=== PATIENT | female | born 1930 | race Caucasian/White ===

== ENCOUNTER 2017-01-22 20:09 | Inpatient (IN) | payer MEDICARE ==
[~2017-01-22] VITALS: Ht 165.1 cm; Wt 61.7 kg
[2017-01-22 21:29] LABS: BASO # 0.1 x10^3/uL (0.0-0.2); BASO % 3 % (0-3); EOS # 0.1 x10^3/uL (0.0-0.7); EOS % 2 % (0-3); HEMATOCRIT 27.9 % (36.0-47.0); HEMOGLOBIN 9.5 g/dL (12.0-15.5); LYMPH # 1.5 x10^3/uL (1.0-4.8); LYMPH % 40 % (24-48); MEAN CORPUSCULAR HEMOGLOBIN 31 pg (25-35); MEAN CORPUSCULAR HGB CONC 34 g/dL (31-37); MEAN CORPUSCULAR VOLUME 92 fL (79-100); MONO # 0.4 x10^3/uL (0.0-1.1); MONO % 10 % (0-9); NEUT # 1.8 x10^3uL (1.8-7.7); NEUT % 46 % (31-73); PLATELET COUNT 156 x10^3/uL (140-400); RED BLOOD COUNT 3.04 x10^6/uL (3.50-5.40); WHITE BLOOD COUNT 3.8 x10^3/uL (4.0-11.0)
[2017-01-22] MEDS ORDERED: SERT50TA PO (21:29)
[2017-01-22] MEDS ORDERED: CALC1TAB70 PO (21:29)
[2017-01-22] MEDS ORDERED: FLUT16SP21 NS (21:29)
[2017-01-22] MEDS ORDERED: CHOL10003 PO (21:29)
[2017-01-22] MEDS ORDERED: ACET325T9 PO (21:29)
[2017-01-22] MEDS ORDERED: FERR-26 PO (21:29)
[2017-01-22] MEDS ORDERED: DONE10TA61 PO (21:29)
[2017-01-22] MEDS ORDERED: MIRT15TA3 PO (21:29)
[2017-01-22] MEDS ORDERED: QUET25TA5 PO (21:29)
[2017-01-22] MEDS ORDERED: MIRA25TA PO (21:29)
[2017-01-22] MEDS ORDERED: ASPI81TA50 PO (21:29)
[2017-01-22] MEDS ORDERED: LORA0.5T PO (21:29)
[2017-01-22] MEDS ORDERED: ACYC400T PO (21:29)
[2017-01-22] MEDS ORDERED: AMLO10TA2 PO (21:29)
[2017-01-22] MEDS ORDERED: LORA10TA3 PO (21:29)
[2017-01-22] MEDS ORDERED: WARF3TAB7 PO (21:29)
[2017-01-22] MEDS ORDERED: ACET500T68 PO (21:29)
[2017-01-22] MEDS ORDERED: DICL100G18 TP (21:29)
[2017-01-22] MEDS ORDERED: TRAM50TA PO (21:29)
[2017-01-22] MEDS ORDERED: ALPR0.254 PO (21:29)
[2017-01-22 21:42] LABS: ALBUMIN 3.7 g/dL (3.4-5.0); ALBUMIN/GLOBULIN RATIO 1.3 (1.0-1.7); CALCIUM 9.4 mg/dL (8.5-10.1); CREATININE 1.3 mg/dL (0.6-1.0); GFR 38.8; MAGNESIUM 1.8 mg/dL (1.8-2.4); POTASSIUM 3.7 mmol/L (3.5-5.1); TOTAL BILIRUBIN 0.3 mg/dL (0.2-1.0); TOTAL PROTEIN 6.6 g/dL (6.4-8.2)
[2017-01-22 21:44] LABS: ACETAMIN < 2.0 mcg/mL (10-30); ETHANOL < 10 mg/dL (0-10); SALIC 0.7 mg/dL (2.8-20.0)
--- NOTE | 2017-01-22 21:49 | RAD ---
CT Head W/O Contrast: History: ALTERED MENTAL STATUS, PSYCH EVAL Comparison: none Axial images were obtained without contrast. There is marked diffuse atrophy. There is no mass effect, extraaxial fluid collections or gross bleed. 11 mm density along the tentorium on the left could be a meningioma or calcification. There is ventriculomegaly. Mild, patchy periventricular and subcortical white matter hypoattenuation is seen. There is no focal loss of thompson-white matter distinction to suggest acute ischemia, i.e. stroke. Impression: 1. Marked cerebral atrophy. 2. Ventriculomegaly is felt to be secondary to atrophy. 3. No acute findings. PQRS Compliance Statement: One or more of the following individualized dose reduction techniques were utilized for this examination: 1. Automated exposure control 2. Adjustment of the mA and/or kV according to patient size 3. Use of iterative reconstruction technique Electronically signed by: Hemal Parker III, MD (01/22/2017 9:45 PM) [facility]
--- NOTE | 2017-01-22 22:14 | EKG ---
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
--- NOTE | 2017-01-22 22:46 | PHYS DOC ---
Past History Past Medical History: A-Fib, CAD, Dementia, Depression, Hypertension, UTI, Other Past Surgical History: Other Alcohol Use: None Drug Use: None Adult General Chief Complaint Chief Complaint: PSYCH EVALUATION [facility] HPI Patient is a 86-year-old female brought in as a geriatric psych screening. Patient reportedly is depressed and threatening to kill herself and running around the alf naked and putting things in her vagina. Patient is pleasant and denies any complaints to me. She is in no obvious distress with normal vital signs. Review of Systems Review of Systems Constitutional: Denies fever or chills [] Eyes: Denies change in visual acuity, redness, or eye pain [] HENT: Denies nasal congestion or sore throat [] Respiratory: Denies cough or shortness of breath [] Cardiovascular: No additional information not addressed in HPI [] GI: Denies abdominal pain, nausea, vomiting, bloody stools or diarrhea [] : Denies dysuria or hematuria [] Musculoskeletal: Denies back pain or joint pain [] Integument: Denies rash or skin lesions [] Neurologic: Denies headache, focal weakness or sensory changes [] Endocrine: Denies polyuria or polydipsia [] All other systems were reviewed and found to be within normal limits, except as documented in this note. Allergies Allergies Allergies Coded Allergies Type Severity Reaction Last Updated Verified No Known Drug Allergies 01/22/17 No Physical Exam Physical Exam Constitutional: Well developed, well nourished, no acute distress, non-toxic appearance. [] HENT: Normocephalic, atraumatic, bilateral external ears normal, oropharynx moist, no oral exudates, nose normal. [] Eyes: PERRLA, EOMI, conjunctiva normal, no discharge. [] Neck: Normal range of motion, no tenderness, supple, no stridor. [] Cardiovascular:Heart rate regular rhythm, no murmur [] Lungs & Thorax: Bilateral breath sounds clear to auscultation [] Abdomen: Bowel sounds normal, soft, no tenderness, no masses, no pulsatile masses. [] Skin: Warm, dry, no erythema, no rash. [] Back: No tenderness, no CVA tenderness. [] Extremities: No tenderness, no cyanosis, no clubbing, ROM intact, no edema. [] Neurologic: Alert and oriented X 2, moves all ext Current Patient Data Vital Signs Vital Signs Date Time Temp Pulse Resp B/P (MAP) Pulse Ox O2 Delivery O2 Flow Rate FiO2 01/22/17 20:10 98.1 65 20 99 Room Air Lab Results Laboratory Tests Test 01/22/17 21:04 White Blood Count 3.8 x10^3/uL (4.0-11.0) L Red Blood Count 3.04 x10^6/uL (3.50-5.40) L Hemoglobin 9.5 g/dL (12.0-15.5) L Hematocrit 27.9 % (36.0-47.0) L Mean Corpuscular Volume 92 fL (79-100) Mean Corpuscular Hemoglobin 31 pg (25-35) Mean Corpuscular Hemoglobin Concent 34 g/dL (31-37) Red Cell Distribution Width 17.0 % (11.5-14.5) H Platelet Count 156 x10^3/uL (140-400) Neutrophils (%) (Auto) 46 % (31-73) Lymphocytes (%) (Auto) 40 % (24-48) Monocytes (%) (Auto) 10 % (0-9) H Eosinophils (%) (Auto) 2 % (0-3) Basophils (%) (Auto) 3 % (0-3) Neutrophils # (Auto) 1.8 x10^3uL (1.8-7.7) Lymphocytes # (Auto) 1.5 x10^3/uL (1.0-4.8) Monocytes # (Auto) 0.4 x10^3/uL (0.0-1.1) Eosinophils # (Auto) 0.1 x10^3/uL (0.0-0.7) Basophils # (Auto) 0.1 x10^3/uL (0.0-0.2) Sodium Level 144 mmol/L (136-145) Potassium Level 3.7 mmol/L (3.5-5.1) Chloride Level 107 mmol/L (98-107) Carbon Dioxide Level 30 mmol/L (21-32) Anion Gap 7 (6-14) Blood Urea Nitrogen 23 mg/dL (7-20) H Creatinine 1.3 mg/dL (0.6-1.0) H Estimated GFR (Cockcroft-Gault) 38.8 BUN/Creatinine Ratio 18 (6-20) Glucose Level 114 mg/dL (70-99) H Calcium Level 9.4 mg/dL (8.5-10.1) Magnesium Level 1.8 mg/dL (1.8-2.4) Total Bilirubin 0.3 mg/dL (0.2-1.0) Aspartate Amino Transferase (AST) 23 U/L (15-37) Alanine Aminotransferase (ALT) 19 U/L (14-59) Alkaline Phosphatase 47 U/L (46-116) Troponin I Quantitative < 0.017 ng/mL (0-0.055) Total Protein 6.6 g/dL (6.4-8.2) Albumin 3.7 g/dL (3.4-5.0) Albumin/Globulin Ratio 1.3 (1.0-1.7) Salicylates Level 0.7 mg/dL (2.8-20.0) L Salicylate Last Dose Date 01/22/17 Salicylate Last Dose Time Unknown Acetaminophen Level < 2.0 mcg/mL (10-30) L Acetaminophen Last Dose Date 01/22/17 Acetaminophen Last Dose Time Unknown Ethyl Alcohol Level < 10 mg/dL (0-10) EKG EKG Sinus rhythm at 64 beats per minutes with normal axis and no obvious ST elevation or depression and normal T waves. Radiology/Procedures Radiology/Procedures CT Head W/O Contrast: History: ALTERED MENTAL STATUS, PSYCH EVAL Comparison: none Axial images were obtained without contrast. There is marked diffuse atrophy. There is no mass effect, extraaxial fluid collections or gross bleed. 11 mm density along the tentorium on the left could be a meningioma or calcification. There is ventriculomegaly. Mild, patchy periventricular and subcortical white matter hypoattenuation is seen. There is no focal loss of thompson-white matter distinction to suggest acute ischemia, i.e. stroke. Impression: 1. Marked cerebral atrophy. 2. Ventriculomegaly is felt to be secondary to atrophy. 3. No acute findings. PQRS Compliance Statement: One or more of the following individualized dose reduction techniques were utilized for this examination: 1. Automated exposure control 2. Adjustment of the mA and/or kV according to patient size 3. Use of iterative reconstruction technique Electronically signed by: Zara Parker III, MD (01/22/2017 9:45 PM) [facility] DICTATED AND SIGNED BY: ZARA PARKER III, MD DATE: 01/22/172141 Course & Med Decision Making Course & Med Decision Making Patient with obvious psychiatric needs and she is medically cleared from my standpoint so she was sent to a psychiatric unit for further evaluation. Dragon Disclaimer Dragon Disclaimer This electronic medical record was generated, in whole or in part, using a voice recognition dictation system. Departure Departure: Impression: Primary Impression: Altered mental status Disposition: ADMITTED INPATIENT Admitting Physician: Other Condition: STABLE GENOVEVA MORALES DO Jan 22, 2017 22:46
[2017-01-22 23:04] LABS: BARBITURATES NEG (NEG); BENZODIAZEPINES NEG (NEG); CANNABINOIDS NEG (NEG); COCAINE NEG (NEG); METHADONE NEG (NEG); OPIATES NEG (NEG); PHENCYCLIDINE NEG (NEG)
[2017-01-22 23:05] LABS: AMPHETAMINE/METHAMPHETAMINE NEG (NEG)
[2017-01-22 23:07] LABS: BILIRUBIN,URINE NEG (NEG); CLARITY,URINE CLEAR; COLOR,URINE STRAW; GLUCOSE,URINE NEG (NEG); NITRITE,URINE NEG (NEG); UROBILINOGEN,URINE 0.2 mg/dL (0.2 mg/dL)
[2017-01-22 23:08] LABS: BACTERIA,URINE 0 /HPF (0-FEW); RBC,URINE OCC /HPF (0-2)
[2017-01-22 23:10] LABS: HYALINE CASTS, URINE MOD /HPF
[2017-01-23 00:15] VITALS: BP 178/74
[2017-01-23] MEDS ORDERED: METHYL SALICYLATE/MENTHOL TOPICAL OINTMENT 29GM TUBE. TP PRN (00:45)
[2017-01-23] MEDS ORDERED: MAG HYDROX/AL HYDROX/SIMETH 30 ML ORAL.SUSP PO PRN (00:45)
[2017-01-23] MEDS ORDERED: MAGNESIUM HYDROXIDE 2,400 MG/30 ML ORAL.SUSP. PO PRN (00:45)
[2017-01-23] MEDS ORDERED: ACETAMINOPHEN 325 MG TABLET PO PRN ×2 (00:45→05:45)
[2017-01-23] MEDS ORDERED: ALPRAZolam 0.25 MG TABLET PO PRN (01:00)
[2017-01-23] MEDS ORDERED: LORazepam 0.5 MG TABLET PO PRN (01:00)
--- NOTE | 2017-01-23 01:26 | NUR ---
Admission Note with Justification for Admission to [facility] Patient admitted to [facility] for protective oversight for emergency stabilization of acute psychiatric crisis. Pt admitted from: [place] Mode of arrival: EMS Accompanied By: EMS Precipitating behaviors that initiated intake and admission: Pt has been sexually inappropriate; found naked from waist down in her room, touching her self inappropriately. Upon standing, several objects fell out of patient's vagina including two lanyards, bungie shaffer chain, and a plastic shopping sack. Pt has recently been refusing medications and had increased depression. Description of failure of out patient attempts at stabilization in previous setting list behavior and medication trials: Increased Zoloft to 100mg daily Behaviors and assessment findings upon admission: Pt calm, cooperative, and complaint. A/O to self, , place, and time- forgetful to situation. Speech clear, spontaneous, answers questions appropriately. Skin C/D/I, dryness to bilateral feet noted. Lung sounds clear/diminished, no SOA noted. HRRR, peripheral pulses palpable and equal bilaterally, no edema noted. Pt up assist x1 w/walker, gait unsteady. Pt oriented to room, bed low/locked and bed alarm in use. Plan: Admit for protective oversight for adjustment and stabilization of medications, behaviors and mood. Intense treatment regimen including groups, medication adjustments, therapy, consistent regimen for ADL's, self care, and sleep hygiene. Daily monitoring by Inpatient staff, Psychiatry, and Medical Physician.
[2017-01-23] MEDS ORDERED: ACETAMINOPHEN 500 MG TABLET PO PRN (05:45)
[2017-01-23] MEDS ORDERED: traMADol 50 MG TABLET PO PRN (05:45)
[2017-01-23 06:20] VITALS: BP 184/71
--- NOTE | 2017-01-23 08:30 | NUR ---
SW reviewed pt insurance upon admit. Face sheet, csnap and intake state pt's insurance is Medicare A, B and no Part C. No secondary. No auth required.
--- NOTE | 2017-01-23 08:45 | NUR ---
SW introduced self to pt. during breakfast and asked if pt would be interested in meeting w/SW later to get to know each other. Pt. stated she was not available at this time due to having a scheduled meeting to attend (for work). SW stated SW would follow up w/pt later. SW will also contact pt's brother for PSA information as pt appears to be slightly confused at this time.
[2017-01-23] MEDS: CALCIUM CARB/VIT D3 500/200 TABLET PO SCH ×2 (09:55→18:40)
[2017-01-23] MEDS: CETIRIZINE HCL 10 MG TABLET PO SCH (09:55)
[2017-01-23] MEDS: SERTRALINE 50 MG TABLET. PO SCH (09:56)
[2017-01-23] MEDS: FERROUS SULFATE 325 MG TABLET. PO SCH (09:56)
[2017-01-23] MEDS: ASPIRIN ENTERIC COATED 81 MG TABLET.DR. PO SCH (09:56)
[2017-01-23] MEDS: CHOLECALCIFEROL (VITAMIN D3) 1,000 UNIT TABLET PO SCH (09:56)
[2017-01-23] MEDS: amLODIPine BESYLATE 10 MG TABLET PO SCH (09:56)
[2017-01-23] MEDS: FLUTICASONE 50MCG/NASAL SPRAY 16GM BOTTLE. NS SCH (09:57)
[2017-01-23] MEDS: MIRABEGRON 25 MG TAB.ER.24H PO SCH (09:57)
[2017-01-23] MEDS: ACYCLOVIR 200 MG CAPSULE PO SCH ×2 (09:57→20:11)
[2017-01-23] MEDS: DICLOFENAC SODIUM 1% TOPICAL GEL 100GM TUBE. TP SCH ×2 (10:04→20:16)
[2017-01-23 16:34] VITALS: BP 118/70
--- NOTE | 2017-01-23 17:19 | HP ---
ADMIT DATE: 01/23/2017 MEDICAL HISTORY AND PHYSICAL FOR THE SENIOR BEHAVIOR UNIT REASON FOR ADMISSION TO THE SENIOR BEHAVIORAL UNIT: This is an 86-year-old female coming from the [facility] [place] where she has resided since March 2015. She since 01/21/2017 has been running around naked inserting objects into her vagina, incontinent, refusing meds, depression and making suicidal ideation statements on 01/16/2017. PAST MEDICAL HISTORY: Dementia, allergic rhinitis, depression, urinary tract infection, AFib, hypertension, hyperlipidemia, osteoporosis, myopathy, muscle weakness, coronary artery disease. ALLERGIES: None. MEDICATIONS: Reviewed and are available on the MAR. SOCIAL HISTORY: The patient does not smoke. Resides in a mcc. No alcohol. REVIEW OF SYSTEMS: The patient does not recall having problems with vagina and denies having pain in that area. Otherwise, no complaints. OBJECTIVE: VITAL SIGNS: Blood pressure 184/71, pulse 58, blood pressure last night was 128/62, pulse 58, temperature 97.4. GENERAL: Pleasant elderly female, in no acute distress. HEENT: Hearing is normal. Her eyes are clear. She wears glasses. Nose is patent. Throat was clear. NECK: Supple. Thyroid was not enlarged. LUNGS: Clear to auscultation. CARDIOVASCULAR: Regular rhythm and rate. ABDOMEN: Soft, nontender. EXTERNAL VAGINAL EXAM: The patient does have watery grayish discharge with a fishy odor. EXTREMITIES: Without edema. Her gait is abnormal. She has flat feet. NEUROLOGIC: Cranial nerves, able to follow directions. LABORATORY DATA: The patient is iron deficient. B12 was less than 400, 312. Vitamin D 36.4. Urine negative. Hemoglobin 9.5, hematocrit 27.9. ASSESSMENT: 1. Dementia with behavior disturbance. 2. Suspect bacterial vaginosis. 3. Normochromic normocytic anemia. 4. Iron deficiency. 5. 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 6. Fall risk. 7. Impaired mobility. PLAN: Treat her medical conditions. Follow along with Dr. Sena. YAJAIRA DE LEON DO DR: JAMEL/lawanda JOB#: [id number] / [id number]
[2017-01-23] MEDS ORDERED: metroNIDAZOLE 500 MG TABLET PO SCH (18:00)
[2017-01-23] MEDS: WARFARIN 1 MG TABLET. PO SCH (18:40)
[2017-01-23] MEDS: WARFARIN 2.5 MG TABLET. PO SCH (18:41)
[2017-01-23 20:08] LABS: T3 TOTAL 76 ng/dL (71-180); THYROXINE 7.1 ug/dL (4.5-12.0)
[2017-01-23] MEDS: DONEPEZIL HCL 10 MG TABLET PO SCH (20:11)
[2017-01-23] MEDS: MIRTAZAPINE 15 MG TABLET PO SCH (20:11)
[2017-01-23] MEDS: QUEtiapine 25 MG TABLET. PO SCH (20:12)
--- NOTE | 2017-01-23 20:13 | PDOC ---
Exam Note: Matteo Note: Please also refer to the separate dictated note~for this date of service dictated separately.~Patient seen individually. Discussed the patient with Nursing staff reviewed the chart.~Reviewed interim history and current functioning. Reviewed vital signs,~Labs/ Radiology~and current medications noted below. Continue current treatment with the changes noted in the dictated addendum note Assessment: Vital Signs: Vital Signs Date Time Temp Pulse Resp B/P (MAP) Pulse Ox O2 Delivery O2 Flow Rate FiO2 01/23/17 16:34 98.6 76 16 118/70 (86) 99 01/22/17 23:22 Room Air Labs: Laboratory Tests Test 01/22/17 21:04 01/22/17 22:10 01/23/17 06:19 White Blood Count 3.8 x10^3/uL (4.0-11.0) L Red Blood Count 3.04 x10^6/uL (3.50-5.40) L Hemoglobin 9.5 g/dL (12.0-15.5) L Hematocrit 27.9 % (36.0-47.0) L Mean Corpuscular Volume 92 fL (79-100) Mean Corpuscular Hemoglobin 31 pg (25-35) Mean Corpuscular Hemoglobin Concent 34 g/dL (31-37) Red Cell Distribution Width 17.0 % (11.5-14.5) H Platelet Count 156 x10^3/uL (140-400) Neutrophils (%) (Auto) 46 % (31-73) Lymphocytes (%) (Auto) 40 % (24-48) Monocytes (%) (Auto) 10 % (0-9) H Eosinophils (%) (Auto) 2 % (0-3) Basophils (%) (Auto) 3 % (0-3) Neutrophils # (Auto) 1.8 x10^3uL (1.8-7.7) Lymphocytes # (Auto) 1.5 x10^3/uL (1.0-4.8) Monocytes # (Auto) 0.4 x10^3/uL (0.0-1.1) Eosinophils # (Auto) 0.1 x10^3/uL (0.0-0.7) Basophils # (Auto) 0.1 x10^3/uL (0.0-0.2) Sodium Level 144 mmol/L (136-145) Potassium Level 3.7 mmol/L (3.5-5.1) Chloride Level 107 mmol/L (98-107) Carbon Dioxide Level 30 mmol/L (21-32) Anion Gap 7 (6-14) Blood Urea Nitrogen 23 mg/dL (7-20) H Creatinine 1.3 mg/dL (0.6-1.0) H Estimated GFR (Cockcroft-Gault) 38.8 BUN/Creatinine Ratio 18 (6-20) Glucose Level 114 mg/dL (70-99) H Calcium Level 9.4 mg/dL (8.5-10.1) Magnesium Level 1.8 mg/dL (1.8-2.4) Iron Level 22 ug/dL (50-170) L Total Iron Binding Capacity 211 ug/dL (250-450) L Iron Saturation 10 % (15-34) L Total Bilirubin 0.3 mg/dL (0.2-1.0) Aspartate Amino Transferase (AST) 23 U/L (15-37) Alanine Aminotransferase (ALT) 19 U/L (14-59) Alkaline Phosphatase 47 U/L (46-116) Troponin I Quantitative < 0.017 ng/mL (0-0.055) Total Protein 6.6 g/dL (6.4-8.2) Albumin 3.7 g/dL (3.4-5.0) Albumin/Globulin Ratio 1.3 (1.0-1.7) Triglycerides Level 62 mg/dL (0-150) Cholesterol Level 165 mg/dL (0-200) LDL Cholesterol, Calculated 65 mg/dL (0-100) VLDL Cholesterol, Calculated 12 mg/dL (0-40) Non-HDL Cholesterol Calculated 77 mg/dL (0-129) HDL Cholesterol 88 mg/dL (40-60) H Cholesterol/HDL Ratio 1.0 Vitamin B12 Level 312 pg/mL (247-911) 25-Hydroxy Vitamin D Total 36.4 ng/mL (30-100) Thyroid Stimulating Hormone (TSH) 0.672 uIU/mL (0.358-3.740) Thyroxine (T4) 7.1 ug/dL (4.5-12.0) Total Triiodothyronine (TT3) 76 ng/dL (71-180) Salicylates Level 0.7 mg/dL (2.8-20.0) L Salicylate Last Dose Date 01/22/17 Salicylate Last Dose Time Unknown Acetaminophen Level < 2.0 mcg/mL (10-30) L Acetaminophen Last Dose Date 01/22/17 Acetaminophen Last Dose Time Unknown Ethyl Alcohol Level < 10 mg/dL (0-10) Rapid Plasma Reagin Pending Urine Collection Type U cath Urine Color Straw Urine Clarity Clear Urine pH 5.5 Urine Specific Prospect 1.015 Urine Protein 100 mg/dl (NEG-TRACE) Urine Glucose (UA) Neg mg/dL (NEG) Urine Ketones (Stick) Trace mg/dL (NEG) Urine Blood Neg (NEG) Urine Nitrite Neg (NEG) Urine Bilirubin Neg (NEG) Urine Urobilinogen Dipstick 0.2 mg/dL (0.2 mg/dL) Urine Leukocyte Esterase Neg (NEG) Urine RBC Occ /HPF (0-2) Urine WBC 1-4 /HPF (0-4) Urine Squamous Epithelial Cells None /LPF Urine Bacteria 0 /HPF (0-FEW) Urine Hyaline Casts Mod /HPF Urine Mucus Mod /LPF Urine Opiates Screen Neg (NEG) Urine Methadone Screen Neg (NEG) Urine Barbiturates Neg (NEG) Urine Phencyclidine Screen Neg (NEG) Urine Amphetamine/Methamphetamine Neg (NEG) Urine Benzodiazepines Screen Neg (NEG) Urine Cocaine Screen Neg (NEG) Urine Cannabinoids Screen Neg (NEG) Urine Ethyl Alcohol Neg (NEG) Prothrombin Time 11.2 SEC (9.4-11.4) Prothrombin Time INR 1.1 (0.9-1.1) Current Medications: Meds: Current Medications Acetaminophen (Tylenol) 650 mg PRN Q6HRS PRN PO PAIN / TEMP; Start 01/23/17 at 00:45; Status Cancel Multi-Ingredient Ointment (Analgesic [place]) 1 samantha PRN QID PRN TP MUSCLE PAIN; Start 01/23/17 at 00:45 Al Hydroxide/Mg Hydroxide (Mylanta Plus Xs) 15 ml PRN AFTMEALHC PRN PO DYSPEPSIA; Start 01/23/17 at 00:45 Magnesium Hydroxide (Milk Of Magnesia) 2,400 mg PRN QHS PRN PO CONSTIPATION; Start 01/23/17 at 00:45 Alprazolam (Xanax) 0.25 mg PRN Q6HRS PRN PO ANXIETY / AGITATION; Start at 01:00 Donepezil HCl (Aricept) 10 mg HS PO ; Start 01/23/17 at 21:00 Lorazepam (Ativan) 0.5 mg PRN Q6HRS PRN PO ANXIETY / AGITATION; Start at 01:00 Mirtazapine (Remeron) 7.5 mg HS PO ; Start 01/23/17 at 21:00 Quetiapine Fumarate (SEROquel) 12.5 mg HS PO ; Start 01/23/17 at 21:00 Sertraline HCl (Zoloft) 50 mg DAILY PO Last administered on 01/23/17 09:56; Start 01/23/17 at 09:00 Acetaminophen (Tylenol) 1,000 mg PRN Q6HRS PRN PO PAIN / TEMP; Start 01/23/17 at 05:45 Acetaminophen (Tylenol) 650 mg PRN Q6HRS PRN PO PAIN / TEMP; Start 01/23/17 at 05:45 Amlodipine Besylate (Norvasc) 10 mg DAILY PO Last administered on 01/23/17 09 :56; Start 01/23/17 at 09:00 Aspirin (Aspirin Enteric Coated) 81 mg DAILY PO Last administered on 09:56; Start 01/23/17 at 09:00 Calcium/Vitamin D (Oscal D 500mg/ 200uts) 1 tab BIDWMEALS PO Last administered on 01/23/17 18:40; Start 01/23/17 at 08:00 Vitamin D (Vitamin D3) 1,000 unit DAILY PO Last administered on 01/23/17 09: 56; Start 01/23/17 at 09:00 Diclofenac Sodium (Voltaren) 1 samantha BID TP Last administered on 01/23/17 10:04 ; Start 01/23/17 at 09:00 Ferrous Sulfate (Feosol) 325 mg DAILY PO Last administered on 01/23/17 09:56 ; Start 01/23/17 at 09:00 Fluticasone Propionate (Flonase) 1 spray DAILY NS Last administered on 09:57; Start 01/23/17 at 09:00 Tramadol HCl (Ultram) 50 mg PRN Q6HRS PRN PO PAIN; Start 12/14/17 at 05:45 Warfarin Sodium (Coumadin) 2.5 mg DAILY16 PO Last administered on 01/23/17 18 :41; Start 01/23/17 at 16:00 Acyclovir (Zovirax) 400 mg BID PO Last administered on 01/23/17 09:57; Start 01/23/17 at 09:00 Cetirizine HCl (ZyrTEC) 10 mg DAILY PO Last administered on 01/23/17 09:55; Start 01/23/17 at 09:00 Warfarin Sodium (Coumadin) 1 mg DAILY16 PO Last administered on 01/23/17 18: 40; Start 01/23/17 at 16:00 Warfarin Sodium (Coumadin Per Physician) 1 each PRN DAILY PRN MC SEE COMMENTS; Start 01/23/17 at 08:00 Metronidazole (Flagyl) 500 mg BID76 PO Last administered on 01/23/17 18:40; Start 01/23/17 at 18:00; Stop 01/28/17 at 17:59 Prenat Multivit/ [place]/Iron/Folic Ac (Multivitamin ) 1 tab DAILY PO ; Start 01/24/17 at 09:00 Cyanocobalamin (Vitamin B-12) 1,000 mcg DAILY PO ; Start 01/24/17 at 09:00 Active Scripts Active Reported Alprazolam 0.25 Mg Tablet 0.25 Mg PO PRN Q6HRS PRN Warfarin Sodium 3 Mg Tablet 3.5 Mg PO HS Voltaren (Diclofenac Sodium) 100 Gm Gel..gram. 1 Samantha TP BID Acetaminophen 500 Mg Tablet 1,000 Mg PO PRN Q6HRS PRN Tramadol Hcl (Tramadol HCl) 50 Mg Tablet 50 Mg PO PRN Q6HRS PRN Zoloft (Sertraline Hcl) 50 Mg Tablet 50 Mg PO DAILY Seroquel (Quetiapine Fumarate) 25 Mg Tablet 12.5 Mg PO HS Oyster Shell 500 Mg + Vit D Tb (Calcium Carbonate/Vitamin D3) 1 Each Tablet 1 Tab PO BID Myrbetriq (Mirabegron) 25 Mg Tab.er.24h 25 Mg PO DAILY Mirtazapine 15 Mg Tablet 7.5 Mg PO HS Loratadine 10 Mg Tablet 10 Mg PO DAILY Fluticasone Propionate Nasal [place] (Fluticasone Propionate) 16 Gm Chadw[place].susp 1 [place] NS DAILY Ferrous Sulfate 325 Mg Tablet 325 Mg PO DAILY Vitamin D3 (Cholecalciferol (Vitamin D3)) 1,000 Unit Tablet 1,000 Unit PO DAILY Lorazepam 0.5 Mg Tablet 0.5 Mg PO PRN Q6HRS PRN Aspir-Low (Aspirin) 81 Mg Tablet.dr 81 Mg PO DAILY Aricept (Donepezil Hcl) 10 Mg Tablet 10 Mg PO HS Amlodipine Besylate 10 Mg Tablet 10 Mg PO DAILY Acyclovir 400 Mg Tablet 400 Mg PO BID Tylenol (Acetaminophen) 325 Mg Tablet 650 Mg PO PRN Q6HRS PRN I have reviewed the current psychotropics carefully including drug interactions. Risk benefit ratio favors no change other than as noted in my dictated progress note. Diagnosis: Problems: (1) Altered mental status HARRISON GRAHAM MD Jan 23, 2017 20:13
--- NOTE | 2017-01-23 23:04 | HP ---
ADMIT DATE: 01/23/2017 This note covers elements not covered in my initial note of 01/23/2017. IDENTIFYING DATA: The patient is an ____[id number] female referred to us from [facility] by Dr. Mame Hidalgo, her primary care physician, on account of worsening confusion, undressing herself in front of others, sexually inappropriate behaviors, inserting foreign objects into her vagina, refusing medications, worsening depression, psychosis, new onset of incontinence. She has also been making suicidal statements. On 01/16/2017, she was sent to [facility] Emergency Room, found to be medically stable, returned back to the nursing facility only for us to be called again on 01/22/2017 on account of worsening behaviors as noted above for inpatient psychiatric stabilization. The patient was seen individually evening of 01/23/2017 for this evaluation. CHIEF COMPLAINT: "I have been here 3 months." HISTORY OF PRESENT ILLNESS: The patient has a history of dementia, Alzheimer's vascular type. She has been residing at [facility] for some time, but more recently has been getting extremely psychotic and behaviors have been dangerous as noted above. The patient had sleep and appetite changes. No active suicidal or homicidal ideation, though she has had statements of wanting to commit suicide. No plans, intent or attempt. No clear history of bipolar disorder. PAST PSYCHIATRIC HISTORY: As above. MEDICAL HISTORY: Allergic rhinitis, UTI recurrent, atrial fibrillation, hypertension, hyperlipidemia, osteoporosis, myopathy, muscle weakness, coronary artery disease. DRUG ALLERGIES: Negative. Diet is regular, takes her medications whole. CODE STATUS: Full code. Accu-Cheks: None. CURRENT PSYCHOTROPICS: Aricept 10 mg a day, Ativan 0.5 mg q. 6 hours p.r.n., Remeron 7.5 mg at bedtime, Seroquel 12.5 mg at bedtime, Zoloft 100 mg daily, Xanax 0.25 mg q. 6 hours p.r.n. anxiety. FAMILY HISTORY: Noncontributory. SOCIAL HISTORY: No history of alcohol, drug abuse, physical, sexual or elder abuse. She is not known to be a perpetrator. REVIEW OF SYSTEMS: No CV, , pulmonary, eye, ENT system symptoms on review. Reliability poor. REACTION TO HOSPITALIZATION: The patient oblivious to this assets, supportive family, stable living at the residential. MENTAL STATUS EXAMINATION: The patient is oriented to herself. Insight, judgment, recent and remote memory, attention, concentration, fund of knowledge poor, consistent with her diagnosis. Speech is coherent. Thought processes somewhat loose. LABORATORY DATA: Reviewed. IMPRESSION: Major neurocognitive disorder, Alzheimer, vascular with depression, delusion, behavioral disturbance; anxiety disorder, unspecified; impulse control disorder, unspecified. Rest as above. PLAN: Admit to Geropsychiatry unit at [facility]. I will see the patient daily individually from a psychiatric standpoint, medical followup per Dr. Echols/Dr. Santo. Continue the patient on her current psychotropics, observe baseline, then make further adjustments as clinically indicated. MAN Abdi GRAHAM MD DR: MARY/lawanda JOB#: [id number] / [id number]
--- NOTE | 2017-01-23 23:05 | NUR ---
Behavior Intervention Response and Plan: BIRP Note: Behavior: Assumed Care of patient, patient located in Day Room at shift change. Patient exhibited the following behavior Calm, Interactive, Social. Brief assessment on rounds of vital signs, medication needs, lab studies, and pain. Treatment plan problems 1 and 2. Intervention: Patient assessed and the following interventions initiated safety checks 15 Minute Checks Cognitive Assessment , Head to toe Assessment , Medications. Response: After interactions and interventions patient responded in the following manner, Calm , Compliant ,Cooperative. Continue to assess behaviors and condition will continue to monitor throughout the shift as needed. Patient educated on ADL's, and hand hygiene. Plan: Continue to monitor Master Treatment Plan for patient's progress toward short term goals of Improved Mood, Medication Compliance, intermediate goals to return to previous living setting vs placement. Continue to assess patient for changes in above assessment. Monitor for medication needs, pain, and safety concerns. Hourly rounding performed to ensure safe environment.
[2017-01-24 01:07] LABS: HEMOGLOBIN A1C 4.4 % (4.8-5.6)
[2017-01-24 05:54] VITALS: BP 170/73
[2017-01-24] MEDS: MIRABEGRON 25 MG TAB.ER.24H PO SCH (07:43)
[2017-01-24] MEDS: metroNIDAZOLE 500 MG TABLET PO SCH ×2 (07:44→16:04)
[2017-01-24] MEDS: ACYCLOVIR 200 MG CAPSULE PO SCH ×2 (07:44→21:00)
[2017-01-24] MEDS: ASPIRIN ENTERIC COATED 81 MG TABLET.DR. PO SCH (07:44)
[2017-01-24] MEDS: FERROUS SULFATE 325 MG TABLET. PO SCH (07:45)
[2017-01-24] MEDS: amLODIPine BESYLATE 10 MG TABLET PO SCH (07:45)
[2017-01-24] MEDS: CETIRIZINE HCL 10 MG TABLET PO SCH (07:45)
[2017-01-24] MEDS: CALCIUM CARB/VIT D3 500/200 TABLET PO SCH ×2 (07:45→16:04)
[2017-01-24] MEDS: SERTRALINE 50 MG TABLET. PO SCH (07:45)
[2017-01-24] MEDS: CHOLECALCIFEROL (VITAMIN D3) 1,000 UNIT TABLET PO SCH (07:46)
[2017-01-24] MEDS: CYANOCOBALAMIN (VITAMIN B-12) 1,000 MCG TABLET. PO SCH (07:49)
[2017-01-24] MEDS: PRENATAL MULTIVITAMIN TABLET. PO SCH (07:49)
[2017-01-24] MEDS: FLUTICASONE 50MCG/NASAL SPRAY 16GM BOTTLE. NS SCH (07:55)
[2017-01-24] MEDS: DICLOFENAC SODIUM 1% TOPICAL GEL 100GM TUBE. TP SCH ×2 (08:09→21:00)
--- NOTE | 2017-01-24 11:16 | NUR ---
SW left message for Vicky, SW at [facility]. Pt. has been a resident in the [facility] since 03/[facility].
--- NOTE | 2017-01-24 11:19 | NUR ---
Psychosocial Assessment completed w/pt's brother/dpoa, Bree. ' ' Pt. was born and raised in [place] w/7 siblings. Pt's parents were alcoholics, mother eventually diagnosed w/Dementia. Pt. was partially raised by her when her parents took a job in [place] and left several of the children behind w/the grandparents. Per Bree, the resentment is something that the pt. has carried w/her during her life. 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 Pt. has been 5 times. Pt. has 2 childrne named Darnell and Elenor. Darnell was killed in his early 20's, although it is thought it may have been suicide. Pt has ongoing conflict w/her dtr, Elenor. Per Bree, Elenor is heavily involved w/drugs. Pt. has no history of alcohol or substance abuse, and Bree is not aware of any other mental illness or SI. Pt's dtr has reported to Bree that pt. attempted suicide 2 or 3 times in the past, but there is no confirmation of this. Pt. was diagnosed w/Dementia 4 years ago. Pt. transitioned to [facility] [place], [place] in March 2015. Pt. was recently given a 30 day notice to vacate due to her ongoing needs and recent sexual behavior. Pt. will likely return back to [facility] and complete her 30 days and family can work on new placement. GOALS: Pt. would like to return home. 1. Family support 2. pleasant
--- NOTE | 2017-01-24 12:37 | NUR ---
Behavior Intervention Response and Plan: BIRP Note: Behavior: Assumed Care of patient, patient located in Patient Room at shift change. Patient exhibited the following behavior Calm, Interactive, Social. Brief assessment on rounds of vital signs, medication needs, lab studies, and pain. Treatment plan problems 1 and 2. Intervention: Patient assessed and the following interventions initiated safety checks 15 Minute Checks Cognitive Assessment , Nutrition , Medications. Response: After interactions and interventions patient responded in the following manner, Calm , Compliant ,Cooperative. Continue to assess behaviors and condition will continue to monitor throughout the shift as needed. Patient educated on ADL's, and hand hygiene. Plan: Continue to monitor Master Treatment Plan for patient's progress toward short term goals of Improved Mood, Medication Compliance, intermission coordinator goals to return to previous living setting vs placement. Continue to assess patient for changes in above assessment. Monitor for medication needs, pain, and safety concerns. Hourly rounding performed to ensure safe environment.
[2017-01-24] MEDS: WARFARIN 1 MG TABLET. PO SCH (16:03)
[2017-01-24] MEDS: WARFARIN 2.5 MG TABLET. PO SCH (16:04)
--- NOTE | 2017-01-24 16:30 | NUR ---
Attempted to meet and complete Activity Therapy Assessment; however, Pt. was asleep. 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
[2017-01-24 16:57] VITALS: BP 136/78
[2017-01-24] MEDS: MIRTAZAPINE 15 MG TABLET PO SCH (21:29)
[2017-01-24] MEDS: QUEtiapine 25 MG TABLET. PO SCH (21:29)
[2017-01-24] MEDS: DONEPEZIL HCL 10 MG TABLET PO SCH (21:29)
--- NOTE | 2017-01-25 00:12 | NUR ---
Behavior Intervention Response and Plan: BIRP Note: Behavior: Assumed Care of patient, patient located in Patient Room at shift change. Patient exhibited the following behavior Restless, Disorganized, Demanding. Brief assessment on rounds of vital signs, medication needs, lab studies, and pain. Treatment plan problems 1 & 2. Intervention: Patient assessed and the following interventions initiated safety checks 15 Minute Checks Cognitive Assessment , Head to toe Assessment , Medications. Response: After interactions and interventions patient responded in the following manner, Calm , Appropriate ,Compliant. Continue to assess behaviors and condition will continue to monitor throughout the shift as needed. Patient educated on ADL's, and hand hygiene. Plan: Continue to monitor Master Treatment Plan for patient's progress toward short term goals of Decreased Agitation, No harm To self/ others, care home goals to return to previous living setting vs placement. Continue to assess patient for changes in above assessment. Monitor for medication needs, pain, and safety concerns. Hourly rounding performed to ensure safe environment.
[2017-01-25 06:32] VITALS: BP 144/77
[2017-01-25] MEDS: CALCIUM CARB/VIT D3 500/200 TABLET PO SCH ×2 (08:33→16:41)
[2017-01-25] MEDS: amLODIPine BESYLATE 10 MG TABLET PO SCH (08:33)
[2017-01-25] MEDS: FERROUS SULFATE 325 MG TABLET. PO SCH (08:33)
[2017-01-25] MEDS: PRENATAL MULTIVITAMIN TABLET. PO SCH (08:33)
[2017-01-25] MEDS: CETIRIZINE HCL 10 MG TABLET PO SCH (08:33)
[2017-01-25] MEDS: SERTRALINE 50 MG TABLET. PO SCH (08:33)
[2017-01-25] MEDS: CYANOCOBALAMIN (VITAMIN B-12) 1,000 MCG TABLET. PO SCH (08:33)
[2017-01-25] MEDS: ASPIRIN ENTERIC COATED 81 MG TABLET.DR. PO SCH (08:34)
[2017-01-25] MEDS: CHOLECALCIFEROL (VITAMIN D3) 1,000 UNIT TABLET PO SCH (08:34)
[2017-01-25] MEDS: metroNIDAZOLE 500 MG TABLET PO SCH ×2 (08:34→16:41)
[2017-01-25] MEDS: ACYCLOVIR 200 MG CAPSULE PO SCH ×2 (08:35→20:26)
[2017-01-25] MEDS: FLUTICASONE 50MCG/NASAL SPRAY 16GM BOTTLE. NS SCH (08:35)
[2017-01-25] MEDS: DICLOFENAC SODIUM 1% TOPICAL GEL 100GM TUBE. TP SCH ×2 (08:36→20:27)
[2017-01-25] MEDS: MIRABEGRON 25 MG TAB.ER.24H PO SCH (08:36)
--- NOTE | 2017-01-25 10:35 | PDOC ---
Exam Note: Matteo Note: This is late entry for date of service 01/24/2017.Please also refer to the separate dictated note~for this date of service dictated separately.~Patient seen individually. Discussed the patient with Nursing staff reviewed the chart.~ Reviewed interim history and current functioning. Reviewed vital signs,~Labs/ Radiology~and current medications noted below. Continue current treatment with the changes noted in the dictated addendum note Assessment: Vital Signs: VS - Last 72 Hours, by Label Date Time Temp Pulse Resp B/P (MAP) Pulse Ox O2 Delivery O2 Flow Rate FiO2 01/25/17 08:33 60 144/77 01/25/17 06:32 96.7 60 18 144/77 (99) 96 01/24/17 16:57 98.1 61 16 136/78 (97) 100 Room Air 01/24/17 07:45 54 170/73 01/24/17 05:54 97.4 54 18 170/73 (105) 100 Room Air 01/23/17 16:34 98.6 76 16 118/70 (86) 99 01/23/17 09:56 58 184/71 01/23/17 06:20 97.4 58 16 184/71 (108) 97 01/23/17 00:15 60 18 178/74 (108) 96 01/22/17 23:22 98.1 68 20 128/62 (84) 99 Room Air 01/22/17 20:10 98.1 65 20 99 Room Air Vital Signs Date Time Temp Pulse Resp B/P (MAP) Pulse Ox O2 Delivery O2 Flow Rate FiO2 01/25/17 08:33 60 144/77 01/25/17 06:32 96.7 18 96 01/24/17 16:57 Room Air I&O Intake and Output 01/25/17 07:00 Intake Total 960 ml Balance 960 ml Intake Oral 960 ml Current Medications: Meds: Current Medications Acetaminophen (Tylenol) 650 mg PRN Q6HRS PRN PO PAIN / TEMP; Start 01/23/17 at 00:45; Status Cancel Multi-Ingredient Ointment (Analgesic [place]) 1 samantha PRN QID PRN TP MUSCLE PAIN; Start 01/23/17 at 00:45 Al Hydroxide/Mg Hydroxide (Mylanta Plus Xs) 15 ml PRN AFTMEALHC PRN PO DYSPEPSIA; Start 01/23/17 at 00:45 Magnesium Hydroxide (Milk Of Magnesia) 2,400 mg PRN QHS PRN PO CONSTIPATION; Start 01/23/17 at 00:45 Alprazolam (Xanax) 0.25 mg PRN Q6HRS PRN PO ANXIETY / AGITATION Last administered on 01/24/17 21:30; Start 01/23/17 at 01:00 Donepezil HCl (Aricept) 10 mg HS PO Last administered on 01/24/17 21:29; Start 01/23/17 at 21:00 Lorazepam (Ativan) 0.5 mg PRN Q6HRS PRN PO ANXIETY / AGITATION; Start at 01:00 Mirtazapine (Remeron) 7.5 mg HS PO Last administered on 01/24/17 21:29; Start 01/23/17 at 21:00 Quetiapine Fumarate (SEROquel) 12.5 mg HS PO Last administered on 01/24/17 21 :29; Start 01/23/17 at 21:00 Sertraline HCl (Zoloft) 50 mg DAILY PO Last administered on 01/25/17 08:33; Start 01/23/17 at 09:00 Acetaminophen (Tylenol) 1,000 mg PRN Q6HRS PRN PO PAIN / TEMP; Start 01/23/17 at 05:45 Acetaminophen (Tylenol) 650 mg PRN Q6HRS PRN PO PAIN / TEMP; Start 01/23/17 at 05:45 Amlodipine Besylate (Norvasc) 10 mg DAILY PO Last administered on 01/25/17 08 :33; Start 01/23/17 at 09:00 Aspirin (Aspirin Enteric Coated) 81 mg DAILY PO Last administered on 08:34; Start 01/23/17 at 09:00 Calcium/Vitamin D (Oscal D 500mg/ 200uts) 1 tab BIDWMEALS PO Last administered on 01/25/17 08:33; Start 01/23/17 at 08:00 Vitamin D (Vitamin D3) 1,000 unit DAILY PO Last administered on 01/25/17 08: 34; Start 01/23/17 at 09:00 Diclofenac Sodium (Voltaren) 1 samantha BID TP Last administered on 01/25/17 08:36 ; Start 01/23/17 at 09:00 Ferrous Sulfate (Feosol) 325 mg DAILY PO Last administered on 01/25/17 08:33 ; Start 01/23/17 at 09:00 Fluticasone Propionate (Flonase) 1 spray DAILY NS Last administered on 08:35; Start 01/23/17 at 09:00 Tramadol HCl (Ultram) 50 mg PRN Q6HRS PRN PO PAIN; Start 01/23/17 at 05:45 Warfarin Sodium (Coumadin) 2.5 mg DAILY16 PO Last administered on 01/24/17 16 :04; Start 01/23/17 at 16:00 Acyclovir (Zovirax) 400 mg BID PO Last administered on 01/25/17 08:35; Start 01/23/17 at 09:00 Cetirizine HCl (ZyrTEC) 10 mg DAILY PO Last administered on 01/25/17 08:33; Start 01/23/17 at 09:00 Warfarin Sodium (Coumadin) 1 mg DAILY16 PO Last administered on 01/24/17 16: 03; Start 01/23/17 at 16:00 Warfarin Sodium (Coumadin Per Physician) 1 each PRN DAILY PRN MC SEE COMMENTS; Start 01/23/17 at 08:00 Metronidazole (Flagyl) 500 mg BID76 PO Last administered on 01/23/17 18:40; Start 01/23/17 at 18:00; Stop 01/24/17 at 04:41; Status DC Prenat Multivit/ Senior Packaging Engineer/Iron/Folic Ac (Multivitamin ) 1 tab DAILY PO Last administered on 01/25/17 08:33; Start 01/24/17 at 09:00 Cyanocobalamin (Vitamin B-12) 1,000 mcg DAILY PO Last administered on 08:33; Start 01/24/17 at 09:00 Metronidazole (Flagyl) 500 mg BIDWMEALS PO Last administered on 01/25/17 08: 34; Start 01/24/17 at 08:00; Stop 01/29/17 at 07:59 Active Scripts Active Reported Alprazolam 0.25 Mg Tablet 0.25 Mg PO PRN Q6HRS PRN Warfarin Sodium 3 Mg Tablet 3.5 Mg PO HS Voltaren (Diclofenac Sodium) 100 Gm Gel..gram. 1 Samantha TP BID Acetaminophen 500 Mg Tablet 1,000 Mg PO PRN Q6HRS PRN Tramadol Hcl (Tramadol HCl) 50 Mg Tablet 50 Mg PO PRN Q6HRS PRN Zoloft (Sertraline Hcl) 50 Mg Tablet 50 Mg PO DAILY Seroquel (Quetiapine Fumarate) 25 Mg Tablet 12.5 Mg PO HS Oyster Shell 500 Mg + Vit D Tb (Calcium Carbonate/Vitamin D3) 1 Each Tablet 1 Tab PO BID Myrbetriq (Mirabegron) 25 Mg Tab.er.24h 25 Mg PO DAILY Mirtazapine 15 Mg Tablet 7.5 Mg PO HS Loratadine 10 Mg Tablet 10 Mg PO DAILY Fluticasone Propionate Nasal [place] (Fluticasone Propionate) 16 Gm [place].susp 1 [place] NS DAILY Ferrous Sulfate 325 Mg Tablet 325 Mg PO DAILY Vitamin D3 (Cholecalciferol (Vitamin D3)) 1,000 Unit Tablet 1,000 Unit PO DAILY Lorazepam 0.5 Mg Tablet 0.5 Mg PO PRN Q6HRS PRN Aspir-Low (Aspirin) 81 Mg Tablet.dr 81 Mg PO DAILY Aricept (Donepezil Hcl) 10 Mg Tablet 10 Mg PO HS Amlodipine Besylate 10 Mg Tablet 10 Mg PO DAILY Acyclovir 400 Mg Tablet 400 Mg PO BID Tylenol (Acetaminophen) 325 Mg Tablet 650 Mg PO PRN Q6HRS PRN I have reviewed the current psychotropics carefully including drug interactions. Risk benefit ratio favors no change other than as noted in my dictated progress note. 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
--- NOTE | 2017-01-25 11:27 | NUR ---
Behavior Intervention Response and Plan: BIRP Note: Behavior: Assumed Care of patient, patient located in Dining Room at shift change. Patient exhibited the following behavior Disorganized, Drowsy, Compliant. Brief assessment on rounds of vital signs, medication needs, lab studies, and pain. Treatment plan problems . Intervention: Patient assessed and the following interventions initiated safety checks 15 Minute Checks Cognitive Assessment , Head to toe Assessment , Medications. Response: After interactions and interventions patient responded in the following manner, Disorganized , Compliant ,Sleeping. Continue to assess behaviors and condition will continue to monitor throughout the shift as needed. Patient educated on ADL's, and hand hygiene. Plan: Continue to monitor Master Treatment Plan for patient's progress toward short term goals of Decreased Agitation, Decreased Aggression, terminal supervisor goals to return to previous living setting vs placement. Continue to assess patient for changes in above assessment. Monitor for medication needs, pain, and safety concerns. Hourly rounding performed to ensure safe environment.
--- NOTE | 2017-01-25 15:25 | NUR ---
Dipti Latrellitted: 23 Jan 2017 Assessment: 25 Jan 2017 Activity Therapy Assessment: Patient made eye contact and was aware and answered questions during the assessment. Patient usually attends groups and sits quietly amongst her peers. The patients frustrations and impulses appeared to be controlled during assessments and observations. Patient attends most groups but is usually very quiet. She will participate however she needs to be invited to the groups. Patient views herself as an active but quiet person. Patient uses a wheelchair to be ambulatory and she was sitting quietly in a wheel chair, wearing glasses during the assessment. Patient feels that nothing can hinder her from participating in groups. Initial Treatment Goals: To attend at least five to six activity groups per day to help increase her motivation in socialization and to engage in more recreational activities.
[2017-01-25] MEDS: WARFARIN 1 MG TABLET. PO SCH (16:00)
[2017-01-25] MEDS: WARFARIN 2.5 MG TABLET. PO SCH (16:00)
[2017-01-25 16:40] VITALS: BP 114/66
--- NOTE | 2017-01-25 18:46 | NUR ---
pt up for meals in wc. unsteady on feet. in pleasant spirits. compliant with meds and cares.
[2017-01-25] MEDS: DONEPEZIL HCL 10 MG TABLET PO SCH (20:24)
[2017-01-25] MEDS: MIRTAZAPINE 15 MG TABLET PO SCH (20:24)
[2017-01-25] MEDS: QUEtiapine 25 MG TABLET. PO SCH (20:25)
--- NOTE | 2017-01-25 21:48 | PDOC ---
Exam Note: Matteo Note: Please also refer to the separate dictated note~for this date of service dictated separately.~Patient seen individually. Discussed the patient with Nursing staff reviewed the chart.~Reviewed interim history and current functioning. Reviewed vital signs,~Labs/ Radiology~and current medications noted below. Continue current treatment with the changes noted in the dictated addendum note Assessment: Vital Signs: Vital Signs Date Time Temp Pulse Resp B/P (MAP) Pulse Ox O2 Delivery O2 Flow Rate FiO2 01/25/17 16:40 97.0 64 18 114/66 (82) 99 01/24/17 16:57 Room Air I&O Intake and Output 01/25/17 07:00 Intake Total 960 ml Balance 960 ml Intake Oral 960 ml Current Medications: Meds: Current Medications Acetaminophen (Tylenol) 650 mg PRN Q6HRS PRN PO PAIN / TEMP; Start 01/23/17 at 00:45; Status Cancel Multi-Ingredient Ointment (Analgesic [place]) 1 samantha PRN QID PRN TP MUSCLE PAIN; Start 01/23/17 at 00:45 Al Hydroxide/Mg Hydroxide (Mylanta Plus Xs) 15 ml PRN AFTMEALHC PRN PO DYSPEPSIA; Start 01/23/17 at 00:45 Magnesium Hydroxide (Milk Of Magnesia) 2,400 mg PRN QHS PRN PO CONSTIPATION; Start 01/23/17 at 00:45 Alprazolam (Xanax) 0.25 mg PRN Q6HRS PRN PO ANXIETY / AGITATION Last administered on 01/24/17 21:30; Start 01/23/17 at 01:00 Donepezil HCl (Aricept) 10 mg HS PO Last administered on 01/25/17 20:24; Start 01/23/17 at 21:00 Lorazepam (Ativan) 0.5 mg PRN Q6HRS PRN PO ANXIETY / AGITATION; Start at 01:00; Stop 01/25/17 at 19:34; Status DC Mirtazapine (Remeron) 7.5 mg HS PO Last administered on 01/25/17 20:24; Start 01/23/17 at 21:00 Quetiapine Fumarate (SEROquel) 12.5 mg HS PO Last administered on 01/25/17 20 :25; Start 01/23/17 at 21:00 Sertraline HCl (Zoloft) 50 mg DAILY PO Last administered on 01/25/17 08:33; Start 01/23/17 at 09:00 Acetaminophen (Tylenol) 1,000 mg PRN Q6HRS PRN PO PAIN / TEMP; Start 01/23/17 at 05:45 Acetaminophen (Tylenol) 650 mg PRN Q6HRS PRN PO PAIN / TEMP; Start 01/23/17 at 05:45 Amlodipine Besylate (Norvasc) 10 mg DAILY PO Last administered on 01/25/17 08 :33; Start 01/23/17 at 09:00 Aspirin (Aspirin Enteric Coated) 81 mg DAILY PO Last administered on 08:34; Start 01/23/17 at 09:00 Calcium/Vitamin D (Oscal D 500mg/ 200uts) 1 tab BIDWMEALS PO Last administered on 01/25/17 16:41; Start 01/23/17 at 08:00 Vitamin D (Vitamin D3) 1,000 unit DAILY PO Last administered on 01/25/17 08: 34; Start 01/23/17 at 09:00 Diclofenac Sodium (Voltaren) 1 samantha BID TP Last administered on 01/25/17 20:27 ; Start 01/23/17 at 09:00 Ferrous Sulfate (Feosol) 325 mg DAILY PO Last administered on 01/25/17 08:33 ; Start 01/23/17 at 09:00 Fluticasone Propionate (Flonase) 1 spray DAILY NS Last administered on 08:35; Start 01/23/17 at 09:00 Tramadol HCl (Ultram) 50 mg PRN Q6HRS PRN PO PAIN; Start 01/23/17 at 05:45 Warfarin Sodium (Coumadin) 2.5 mg DAILY16 PO Last administered on 01/25/17 16 :00; Start 01/23/17 at 16:00 Acyclovir (Zovirax) 400 mg BID PO Last administered on 01/25/17 20:26; Start 01/23/17 at 09:00 Cetirizine HCl (ZyrTEC) 10 mg DAILY PO Last administered on 01/25/17 08:33; Start 12/14/17 at 09:00 Warfarin Sodium (Coumadin) 1 mg DAILY16 PO Last administered on 01/25/17 16: 00; Start 01/23/17 at 16:00 Warfarin Sodium (Coumadin Per Physician) 1 each PRN DAILY PRN MC SEE COMMENTS; Start 01/23/17 at 08:00 Metronidazole (Flagyl) 500 mg BID76 PO Last administered on 01/23/17 18:40; Start 01/23/17 at 18:00; Stop 01/24/17 at 04:41; Status DC Prenat Multivit/ [place]/Iron/Folic Ac (Multivitamin ) 1 tab DAILY PO Last administered on 01/25/17 08:33; Start 01/24/17 at 09:00 Cyanocobalamin (Vitamin B-12) 1,000 mcg DAILY PO Last administered on 08:33; Start 01/24/17 at 09:00 Metronidazole (Flagyl) 500 mg BIDWMEALS PO Last administered on 01/25/17 16: 41; Start 01/24/17 at 08:00; Stop 01/29/17 at 07:59 Olanzapine (ZyPREXA ZYDIS) 1.25 mg PRN Q2HR PRN PO ANXIETY / AGITATION; Start 01/25/17 at 19:45 Active Scripts Active Reported Alprazolam 0.25 Mg Tablet 0.25 Mg PO PRN Q6HRS PRN Warfarin Sodium 3 Mg Tablet 3.5 Mg PO HS Voltaren (Diclofenac Sodium) 100 Gm Gel..gram. 1 Samantha TP BID Acetaminophen 500 Mg Tablet 1,000 Mg PO PRN Q6HRS PRN Tramadol Hcl (Tramadol HCl) 50 Mg Tablet 50 Mg PO PRN Q6HRS PRN Zoloft (Sertraline Hcl) 50 Mg Tablet 50 Mg PO DAILY Seroquel (Quetiapine Fumarate) 25 Mg Tablet 12.5 Mg PO HS Oyster Shell 500 Mg + Vit D Tb (Calcium Carbonate/Vitamin D3) 1 Each Tablet 1 Tab PO BID Myrbetriq (Mirabegron) 25 Mg Tab.er.24h 25 Mg PO DAILY Mirtazapine 15 Mg Tablet 7.5 Mg PO HS Loratadine 10 Mg Tablet 10 Mg PO DAILY Fluticasone Propionate Nasal [place] (Fluticasone Propionate) 16 Gm [place].susp 1 [place] NS DAILY Ferrous Sulfate 325 Mg Tablet 325 Mg PO DAILY Vitamin D3 (Cholecalciferol (Vitamin D3)) 1,000 Unit Tablet 1,000 Unit PO DAILY Lorazepam 0.5 Mg Tablet 0.5 Mg PO PRN Q6HRS PRN Aspir-Low (Aspirin) 81 Mg Tablet.dr 81 Mg PO DAILY Aricept (Donepezil Hcl) 10 Mg Tablet 10 Mg PO HS Amlodipine Besylate 10 Mg Tablet 10 Mg PO DAILY Acyclovir 400 Mg Tablet 400 Mg PO BID Tylenol (Acetaminophen) 325 Mg Tablet 650 Mg PO PRN Q6HRS PRN I have reviewed the current psychotropics carefully including drug interactions. Risk benefit ratio favors no change other than as noted in my dictated progress note. 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
--- NOTE | 2017-01-25 22:23 | NUR ---
Behavior Intervention Response and Plan: BIRP Note: Behavior: Assumed Care of patient, patient located in Day Room at shift change. Patient exhibited the following behavior Calm, Drowsy, Disorganized. Brief assessment on rounds of vital signs, medication needs, lab studies, and pain. Treatment plan problems 1 and 2. Intervention: Patient assessed and the following interventions initiated safety checks 15 Minute Checks Cognitive Assessment , Head to toe Assessment , Medications. Response: After interactions and interventions patient responded in the following manner, Calm , Compliant ,Cooperative. Continue to assess behaviors and condition will continue to monitor throughout the shift as needed. Patient educated on ADL's, and hand hygiene. 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 Continue to assess patient for changes in above assessment. Monitor for medication needs, pain, and safety concerns. Hourly rounding performed to ensure safe environment.
[2017-01-26 05:54] VITALS: BP 123/53
[2017-01-26] MEDS: FLUTICASONE 50MCG/NASAL SPRAY 16GM BOTTLE. NS SCH (07:50)
[2017-01-26] MEDS: CYANOCOBALAMIN (VITAMIN B-12) 1,000 MCG TABLET. PO SCH (07:50)
[2017-01-26] MEDS: CALCIUM CARB/VIT D3 500/200 TABLET PO SCH ×2 (07:51→17:18)
[2017-01-26] MEDS: CETIRIZINE HCL 10 MG TABLET PO SCH (07:51)
[2017-01-26] MEDS: FERROUS SULFATE 325 MG TABLET. PO SCH (07:51)
[2017-01-26] MEDS: PRENATAL MULTIVITAMIN TABLET. PO SCH (07:51)
[2017-01-26] MEDS: amLODIPine BESYLATE 10 MG TABLET PO SCH (07:51)
[2017-01-26] MEDS: SERTRALINE 50 MG TABLET. PO SCH (07:51)
[2017-01-26] MEDS: ASPIRIN ENTERIC COATED 81 MG TABLET.DR. PO SCH (07:51)
[2017-01-26] MEDS: CHOLECALCIFEROL (VITAMIN D3) 1,000 UNIT TABLET PO SCH (07:51)
[2017-01-26] MEDS: ACYCLOVIR 200 MG CAPSULE PO SCH ×2 (07:52→20:48)
[2017-01-26] MEDS: metroNIDAZOLE 500 MG TABLET PO SCH ×2 (07:53→17:19)
[2017-01-26] MEDS: MIRABEGRON 25 MG TAB.ER.24H PO SCH (07:55)
[2017-01-26] MEDS: DICLOFENAC SODIUM 1% TOPICAL GEL 100GM TUBE. TP SCH ×2 (09:00→20:48)
--- NOTE | 2017-01-26 10:43 | NUR ---
Behavior Intervention Response and Plan: BIRP Note: Behavior: Assumed Care of patient, patient located in Dining Room at shift change. Patient exhibited the following behavior Disorganized, Drowsy, Compliant. Brief assessment on rounds of vital signs, medication needs, lab studies, and pain. Treatment plan problems . Intervention: Patient assessed and the following interventions initiated safety checks 15 Minute Checks Cognitive Assessment , Head to toe Assessment , Medications. Response: After interactions and interventions patient responded in the following manner, Disorganized , Compliant ,Sleeping. Continue to assess behaviors and condition will continue to monitor throughout the shift as needed. Patient educated on ADL's, and hand hygiene. 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 Continue to assess patient for changes in above assessment. Monitor for medication needs, pain, and safety concerns. Hourly rounding performed to ensure safe environment.
[2017-01-26 16:11] VITALS: BP 112/81
[2017-01-26] MEDS: WARFARIN 1 MG TABLET. PO SCH (17:17)
[2017-01-26] MEDS: WARFARIN 2.5 MG TABLET. PO SCH (17:18)
--- NOTE | 2017-01-26 18:26 | NUR ---
pt up in [place] for meals. has been drowsy on and off today. compliant with meds and cares. Family to visit.
--- NOTE | 2017-01-26 20:16 | PDOC ---
Exam Note: Matteo Note: Please also refer to the separate dictated note~for this date of service dictated separately.~Patient seen individually. Discussed the patient with Nursing staff reviewed the chart.~Reviewed interim history and current functioning. Reviewed vital signs,~Labs/ Radiology~and current medications noted below. Continue current treatment with the changes noted in the dictated addendum note Assessment: Vital Signs: Vital Signs Date Time Temp Pulse Resp B/P (MAP) Pulse Ox O2 Delivery O2 Flow Rate FiO2 01/26/17 16:11 97.6 61 18 112/81 (91) 99 01/24/17 16:57 Room Air I&O Intake and Output 01/26/17 07:00 Intake Total 600 ml Balance 600 ml Intake Oral 600 ml Current Medications: Meds: Current Medications Acetaminophen (Tylenol) 650 mg PRN Q6HRS PRN PO PAIN / TEMP; Start 01/23/17 at 00:45; Status Cancel Multi-Ingredient Ointment (Analgesic [place]) 1 samantha PRN QID PRN TP MUSCLE PAIN; Start 01/23/17 at 00:45 Al Hydroxide/Mg Hydroxide (Mylanta Plus Xs) 15 ml PRN AFTMEALHC PRN PO DYSPEPSIA; Start 01/23/17 at 00:45 Magnesium Hydroxide (Milk Of Magnesia) 2,400 mg PRN QHS PRN PO CONSTIPATION; Start 01/23/17 at 00:45 Alprazolam (Xanax) 0.25 mg PRN Q6HRS PRN PO ANXIETY / AGITATION Last administered on 01/24/17 21:30; Start 01/23/17 at 01:00 Donepezil HCl (Aricept) 10 mg HS PO Last administered on 01/25/17 20:24; Start 01/23/17 at 21:00 Lorazepam (Ativan) 0.5 mg PRN Q6HRS PRN PO ANXIETY / AGITATION; Start at 01:00; Stop 01/25/17 at 19:34; Status DC Mirtazapine (Remeron) 7.5 mg HS PO Last administered on 01/25/17 20:24; Start 01/23/17 at 21:00 Quetiapine Fumarate (SEROquel) 12.5 mg HS PO Last administered on 01/25/17 20 :25; Start 01/23/17 at 21:00 Sertraline HCl (Zoloft) 50 mg DAILY PO Last administered on 01/26/17 07:51; Start 01/23/17 at 09:00 Acetaminophen (Tylenol) 1,000 mg PRN Q6HRS PRN PO PAIN / TEMP; Start 01/23/17 at 05:45 Acetaminophen (Tylenol) 650 mg PRN Q6HRS PRN PO PAIN / TEMP; Start 01/23/17 at 05:45 Amlodipine Besylate (Norvasc) 10 mg DAILY PO Last administered on 01/26/17 07 :51; Start 01/23/17 at 09:00 Aspirin (Aspirin Enteric Coated) 81 mg DAILY PO Last administered on 07:51; Start 01/23/17 at 09:00 Calcium/Vitamin D (Oscal D 500mg/ 200uts) 1 tab BIDWMEALS PO Last administered on 01/26/17 17:18; Start 01/23/17 at 08:00 Vitamin D (Vitamin D3) 1,000 unit DAILY PO Last administered on 01/26/17 07: 51; Start 01/23/17 at 09:00 Diclofenac Sodium (Voltaren) 1 samantha BID TP Last administered on 01/26/17 09:00 ; Start 01/23/17 at 09:00 Ferrous Sulfate (Feosol) 325 mg DAILY PO Last administered on 01/26/17 07:51 ; Start 01/23/17 at 09:00 Fluticasone Propionate (Flonase) 1 spray DAILY NS Last administered on 07:50; Start 01/23/17 at 09:00 Tramadol HCl (Ultram) 50 mg PRN Q6HRS PRN PO PAIN; Start 01/23/17 at 05:45 Warfarin Sodium (Coumadin) 2.5 mg DAILY16 PO Last administered on 01/26/17 17 :18; Start 01/23/17 at 16:00 Acyclovir (Zovirax) 400 mg BID PO Last administered on 01/26/17 07:52; Start 01/23/17 at 09:00 Cetirizine HCl (ZyrTEC) 10 mg DAILY PO Last administered on 01/26/17 07:51; Start 01/23/17 at 09:00 Warfarin Sodium (Coumadin) 1 mg DAILY16 PO Last administered on 01/26/17 17: 17; Start 01/23/17 at 16:00 Warfarin Sodium (Coumadin Per Physician) 1 each PRN DAILY PRN MC SEE COMMENTS; Start 01/23/17 at 08:00; Stop 01/26/17 at 19:20; Status DC Metronidazole (Flagyl) 500 mg BID76 PO Last administered on 01/23/17 18:40; Start 01/23/17 at 18:00; Stop 01/24/17 at 04:41; Status DC Prenat Multivit/ [place]/Iron/Folic Ac (Multivitamin ) 1 tab DAILY PO Last administered on 01/26/17 07:51; Start 01/24/17 at 09:00 Cyanocobalamin (Vitamin B-12) 1,000 mcg DAILY PO Last administered on 07:50; Start 01/24/17 at 09:00 Metronidazole (Flagyl) 500 mg BIDWMEALS PO Last administered on 01/26/17 17: 19; Start 01/24/17 at 08:00; Stop 01/29/17 at 07:59 Olanzapine (ZyPREXA ZYDIS) 1.25 mg PRN Q2HR PRN PO ANXIETY / AGITATION; Start 01/25/17 at 19:45 Warfarin Sodium (Coumadin Per Pharmacy) 1 each PRN DAILY PRN MC SEE COMMENTS; Start 01/26/17 at 19:30 Active Scripts Active Reported Alprazolam 0.25 Mg Tablet 0.25 Mg PO PRN Q6HRS PRN Warfarin Sodium 3 Mg Tablet 3.5 Mg PO HS Voltaren (Diclofenac Sodium) 100 Gm Gel..gram. 1 Samantha TP BID Acetaminophen 500 Mg Tablet 1,000 Mg PO PRN Q6HRS PRN Tramadol Hcl (Tramadol HCl) 50 Mg Tablet 50 Mg PO PRN Q6HRS PRN Zoloft (Sertraline Hcl) 50 Mg Tablet 50 Mg PO DAILY Seroquel (Quetiapine Fumarate) 25 Mg Tablet 12.5 Mg PO HS Oyster Shell 500 Mg + Vit D Tb (Calcium Carbonate/Vitamin D3) 1 Each Tablet 1 Tab PO BID Myrbetriq (Mirabegron) 25 Mg Tab.er.24h 25 Mg PO DAILY Mirtazapine 15 Mg Tablet 7.5 Mg PO HS Loratadine 10 Mg Tablet 10 Mg PO DAILY Fluticasone Propionate Nasal [place] (Fluticasone Propionate) 16 Gm [place].susp 1 [place] NS DAILY Ferrous Sulfate 325 Mg Tablet 325 Mg PO DAILY Vitamin D3 (Cholecalciferol (Vitamin D3)) 1,000 Unit Tablet 1,000 Unit PO DAILY Lorazepam 0.5 Mg Tablet 0.5 Mg PO PRN Q6HRS PRN Aspir-Low (Aspirin) 81 Mg Tablet.dr 81 Mg PO DAILY Aricept (Donepezil Hcl) 10 Mg Tablet 10 Mg PO HS Amlodipine Besylate 10 Mg Tablet 10 Mg PO DAILY Acyclovir 400 Mg Tablet 400 Mg PO BID Tylenol (Acetaminophen) 325 Mg Tablet 650 Mg PO PRN Q6HRS PRN I have reviewed the current psychotropics carefully including drug interactions. Risk benefit ratio favors no change other than as noted in my dictated progress note. 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
[2017-01-26] MEDS: DONEPEZIL HCL 10 MG TABLET PO SCH (20:47)
[2017-01-26] MEDS: QUEtiapine 25 MG TABLET. PO SCH (20:47)
[2017-01-26] MEDS: MIRTAZAPINE 15 MG TABLET PO SCH (20:47)
--- NOTE | 2017-01-26 23:49 | NUR ---
Behavior Intervention Response and Plan: BIRP Note: Behavior: Assumed Care of patient, patient located in Day Room at shift change. Patient exhibited the following behavior Calm, Drowsy, Disorganized. Brief assessment on rounds of vital signs, medication needs, lab studies, and pain. Treatment plan problems 1-2. Intervention: Patient assessed and the following interventions initiated safety checks 15 Minute Checks Cognitive Assessment , Head to toe Assessment , Medications. Response: After interactions and interventions patient responded in the following manner, Calm , Compliant ,Cooperative. Continue to assess behaviors and condition will continue to monitor throughout the shift as needed. Patient educated on ADL's, and hand hygiene. 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 Continue to assess patient for changes in above assessment. Monitor for medication needs, pain, and safety concerns. Hourly rounding performed to ensure safe environment.
[2017-01-27 06:37] VITALS: BP 133/70
--- NOTE | 2017-01-27 07:14 | PN ---
DATE: 01/25/2017 This late entry 01/25/2017 covers elements not covered in my initial note 01/25/2017. Met with the patient in the evening of 01/25/2017. The patient slept 8-3/4 hours previous evening. Her [id number] and sister came to visit her and the visit went well. Previous evening, she was "horrible" per nursing report. She was combative, agitated, but has done better during the day. We will add Zyprexa Zydis p.r.n. REVIEW OF SYSTEMS: Ambulation impaired, in wheelchair, head turned down, not watching the television even though she was close to it, but as a question that she was aware that the [employer] game would be coming and starting shortly. This was quite remarkable. Ambulation impaired, in wheelchair. No CV, , pulmonary, eye, ENT system symptoms on review. MENTAL STATUS EXAM: Oriented to herself. Insight, judgment, recent and remote memory, attention, concentration, fund of knowledge poor, consistent with her diagnosis. IMPRESSION: Major neurocognitive disorder, Alzheimer, vascular with depression, delusion, behavioral disturbance. PLAN: Change Ativan to Zyprexa 1.25 mg q. 2 hours p.r.n. psychosis, agitation, max 7.5 mg a day. Continue rest unchanged. Consider increasing Zoloft, using BuSpar for anxiety, and if needed, Depakote as a mood stabilizer. MAN Abdi GRAHAM MD DR: MARY/lawanda JOB#: [id number] / [id number]
--- NOTE | 2017-01-27 07:16 | PN ---
DATE: 01/24/2017 This late entry, date of service 01/24/2017, covers elements not covered in the initial note 01/24/2017. Met with the patient in the evening of 01/24/2017. The patient remains confused, little more social, less irritable. REVIEW OF SYSTEMS: Ambulation impaired, in wheelchair. No CV, , pulmonary, eye, ENT system symptoms on review. MENTAL STATUS EXAM: Oriented to herself. Insight, judgment, recent and remote memory, attention, concentration, fund of knowledge poor, consistent with her diagnosis. IMPRESSION: Major neurocognitive disorder, Alzheimer, vascular with depression, delusion, behavioral disturbance, major depressive disorder; anxiety disorder, unspecified. PLAN: Continue psychotropics mentioned in my initial note, Aricept along with Remeron, Seroquel, and Zoloft and Xanax p.r.n. Adjust further as clinically indicated. HARRISON GRAHAM MD DR: AMRY/lawanda JOB#: [id number] / [id number]
[2017-01-27] MEDS: DICLOFENAC SODIUM 1% TOPICAL GEL 100GM TUBE. TP SCH ×2 (09:33→19:30)
[2017-01-27] MEDS: FLUTICASONE 50MCG/NASAL SPRAY 16GM BOTTLE. NS SCH (09:33)
[2017-01-27] MEDS: amLODIPine BESYLATE 10 MG TABLET PO SCH (09:33)
[2017-01-27] MEDS: CHOLECALCIFEROL (VITAMIN D3) 1,000 UNIT TABLET PO SCH (09:33)
[2017-01-27] MEDS: SERTRALINE 50 MG TABLET. PO SCH (09:33)
[2017-01-27] MEDS: CETIRIZINE HCL 10 MG TABLET PO SCH (09:33)
[2017-01-27] MEDS: PRENATAL MULTIVITAMIN TABLET. PO SCH (09:33)
[2017-01-27] MEDS: FERROUS SULFATE 325 MG TABLET. PO SCH (09:33)
[2017-01-27] MEDS: MIRABEGRON 25 MG TAB.ER.24H PO SCH (09:34)
[2017-01-27] MEDS: CALCIUM CARB/VIT D3 500/200 TABLET PO SCH ×2 (09:34→16:56)
[2017-01-27] MEDS: metroNIDAZOLE 500 MG TABLET PO SCH ×2 (09:34→16:56)
[2017-01-27] MEDS: CYANOCOBALAMIN (VITAMIN B-12) 1,000 MCG TABLET. PO SCH (09:34)
[2017-01-27] MEDS: ASPIRIN ENTERIC COATED 81 MG TABLET.DR. PO SCH (09:34)
[2017-01-27] MEDS: ACYCLOVIR 200 MG CAPSULE PO SCH ×2 (09:35→19:30)
--- NOTE | 2017-01-27 10:05 | NUR ---
Behavior Intervention Response and Plan: BIRP Note: Behavior: Assumed Care of patient, patient located in Day Room at shift change. Patient exhibited the following behavior Disorganized, Calm, Drowsy. Brief assessment on rounds of vital signs, medication needs, lab studies, and pain. Treatment plan problems 1-2. Intervention: Patient assessed and the following interventions initiated safety checks 15 Minute Checks Personal Alarm in place , Cognitive Assessment , Head to toe Assessment. Response: After interactions and interventions patient responded in the following manner, Calm , Withdrawn ,Drowsy. Continue to assess behaviors and condition will continue to monitor throughout the shift as needed. Patient educated on ADL's, and hand hygiene. 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 Continue to assess patient for changes in above assessment. Monitor for medication needs, pain, and safety concerns. Hourly rounding performed to ensure safe environment.
[2017-01-27 16:02] VITALS: BP 129/56
[2017-01-27] MEDS: WARFARIN 2.5 MG TABLET. PO SCH (16:55)
[2017-01-27] MEDS: WARFARIN 1 MG TABLET. PO SCH (16:56)
[2017-01-27] MEDS: MIRTAZAPINE 15 MG TABLET PO SCH (19:29)
[2017-01-27] MEDS: DONEPEZIL HCL 10 MG TABLET PO SCH (19:29)
[2017-01-27] MEDS: QUEtiapine 25 MG TABLET. PO SCH (19:29)
--- NOTE | 2017-01-27 20:07 | PDOC ---
Exam Note: Matteo Note: Please also refer to the separate dictated note~for this date of service dictated separately.~Patient seen individually. Discussed the patient with Nursing staff reviewed the chart.~Reviewed interim history and current functioning. Reviewed vital signs,~Labs/ Radiology~and current medications noted below. Continue current treatment with the changes noted in the dictated addendum note Assessment: Vital Signs: Vital Signs Date Time Temp Pulse Resp B/P (MAP) Pulse Ox O2 Delivery O2 Flow Rate FiO2 01/27/17 16:02 97.8 55 18 129/56 (80) 100 01/24/17 16:57 Room Air I&O Intake and Output 01/27/17 07:00 Intake Total 720 ml Balance 720 ml Intake Oral 720 ml # Voids 2 # Bowel Movements 1 Labs: Laboratory Tests Test 01/27/17 07:22 Prothrombin Time 13.1 SEC (9.4-11.4) H Prothrombin Time INR 1.3 (0.9-1.1) H Current Medications: Meds: Current Medications Acetaminophen (Tylenol) 650 mg PRN Q6HRS PRN PO PAIN / TEMP; Start 01/23/17 at 00:45; Status Cancel Multi-Ingredient Ointment (Analgesic [place]) 1 samantha PRN QID PRN TP MUSCLE PAIN; Start 01/23/17 at 00:45 Al Hydroxide/Mg Hydroxide (Mylanta Plus Xs) 15 ml PRN AFTMEALHC PRN PO DYSPEPSIA; Start 01/23/17 at 00:45 Magnesium Hydroxide (Milk Of Magnesia) 2,400 mg PRN QHS PRN PO CONSTIPATION; Start 01/23/17 at 00:45 Alprazolam (Xanax) 0.25 mg PRN Q6HRS PRN PO ANXIETY / AGITATION Last administered on 01/24/17 21:30; Start 01/23/17 at 01:00 Donepezil HCl (Aricept) 10 mg HS PO Last administered on 01/27/17 19:29; Start 01/23/17 at 21:00 Lorazepam (Ativan) 0.5 mg PRN Q6HRS PRN PO ANXIETY / AGITATION; Start at 01:00; Stop 01/25/17 at 19:34; Status DC Mirtazapine (Remeron) 7.5 mg HS PO Last administered on 01/27/17 19:29; Start 01/23/17 at 21:00 Quetiapine Fumarate (SEROquel) 12.5 mg HS PO Last administered on 01/27/17 19 :29; Start 01/23/17 at 21:00 Sertraline HCl (Zoloft) 50 mg DAILY PO Last administered on 01/27/17 09:33; Start 01/23/17 at 09:00 Acetaminophen (Tylenol) 1,000 mg PRN Q6HRS PRN PO PAIN / TEMP; Start 01/23/17 at 05:45 Acetaminophen (Tylenol) 650 mg PRN Q6HRS PRN PO PAIN / TEMP; Start 01/23/17 at 05:45 Amlodipine Besylate (Norvasc) 10 mg DAILY PO Last administered on 01/27/17 09 :33; Start 01/23/17 at 09:00 Aspirin (Aspirin Enteric Coated) 81 mg DAILY PO Last administered on 09:34; Start 01/23/17 at 09:00 Calcium/Vitamin D (Oscal D 500mg/ 200uts) 1 tab BIDWMEALS PO Last administered on 01/27/17 16:56; Start 01/23/17 at 08:00 Vitamin D (Vitamin D3) 1,000 unit DAILY PO Last administered on 01/27/17 09: 33; Start 01/23/17 at 09:00 Diclofenac Sodium (Voltaren) 1 samantha BID TP Last administered on 01/27/17 19:30 ; Start 01/23/17 at 09:00 Ferrous Sulfate (Feosol) 325 mg DAILY PO Last administered on 01/27/17 09:33 ; Start 01/23/17 at 09:00 Fluticasone Propionate (Flonase) 1 spray DAILY NS Last administered on 09:33; Start 01/23/17 at 09:00 Tramadol HCl (Ultram) 50 mg PRN Q6HRS PRN PO PAIN; Start 01/23/17 at 05:45 Warfarin Sodium (Coumadin) 2.5 mg DAILY16 PO Last administered on 01/27/17 16 :55; Start 01/23/17 at 16:00 Acyclovir (Zovirax) 400 mg BID PO Last administered on 01/27/17 19:30; Start 01/23/17 at 09:00 Cetirizine HCl (ZyrTEC) 10 mg DAILY PO Last administered on 01/27/17 09:33; Start 01/23/17 at 09:00 Warfarin Sodium (Coumadin) 1 mg DAILY16 PO Last administered on 01/27/17 16: 56; Start 01/23/17 at 16:00 Warfarin Sodium (Coumadin Per Physician) 1 each PRN DAILY PRN MC SEE COMMENTS; Start 01/23/17 at 08:00; Stop 01/26/17 at 19:20; Status DC Metronidazole (Flagyl) 500 mg BID76 PO Last administered on 01/23/17 18:40; Start 01/23/17 at 18:00; Stop 01/24/17 at 04:41; Status DC Prenat Multivit/ [place]/Iron/Folic Ac (Multivitamin ) 1 tab DAILY PO Last administered on 01/27/17 09:33; Start 01/24/17 at 09:00 Cyanocobalamin (Vitamin B-12) 1,000 mcg DAILY PO Last administered on 09:34; Start 01/24/17 at 09:00 Metronidazole (Flagyl) 500 mg BIDWMEALS PO Last administered on 01/27/17 16: 56; Start 01/24/17 at 08:00; Stop 01/29/17 at 07:59 Olanzapine (ZyPREXA ZYDIS) 1.25 mg PRN Q2HR PRN PO ANXIETY / AGITATION; Start 01/25/17 at 19:45 Warfarin Sodium (Coumadin Per Pharmacy) 1 each PRN DAILY PRN MC SEE COMMENTS; Start 01/26/17 at 19:30 Active Scripts Active Reported Alprazolam 0.25 Mg Tablet 0.25 Mg PO PRN Q6HRS PRN Warfarin Sodium 3 Mg Tablet 3.5 Mg PO HS Voltaren (Diclofenac Sodium) 100 Gm Gel..gram. 1 [place] TP BID Acetaminophen 500 Mg Tablet 1,000 Mg PO PRN Q6HRS PRN Tramadol Hcl (Tramadol HCl) 50 Mg Tablet 50 Mg PO PRN Q6HRS PRN Zoloft (Sertraline Hcl) 50 Mg Tablet 50 Mg PO DAILY Seroquel (Quetiapine Fumarate) 25 Mg Tablet 12.5 Mg PO HS Oyster Shell 500 Mg + Vit D Tb (Calcium Carbonate/Vitamin D3) 1 Each Tablet 1 Tab PO BID Myrbetriq (Mirabegron) 25 Mg Tab.er.24h 25 Mg PO DAILY Mirtazapine 15 Mg Tablet 7.5 Mg PO HS Loratadine 10 Mg Tablet 10 Mg PO DAILY Fluticasone Propionate Nasal [place] (Fluticasone Propionate) 16 Gm [place].susp 1 [place] NS DAILY Ferrous Sulfate 325 Mg Tablet 325 Mg PO DAILY Vitamin D3 (Cholecalciferol (Vitamin D3)) 1,000 Unit Tablet 1,000 Unit PO DAILY Lorazepam 0.5 Mg Tablet 0.5 Mg PO PRN Q6HRS PRN Aspir-Low (Aspirin) 81 Mg Tablet.dr 81 Mg PO DAILY Aricept (Donepezil Hcl) 10 Mg Tablet 10 Mg PO HS Amlodipine Besylate 10 Mg Tablet 10 Mg PO DAILY Acyclovir 400 Mg Tablet 400 Mg PO BID Tylenol (Acetaminophen) 325 Mg Tablet 650 Mg PO PRN Q6HRS PRN I have reviewed the current psychotropics carefully including drug interactions. Risk benefit ratio favors no change other than as noted in my dictated progress note. 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
--- NOTE | 2017-01-27 21:51 | NUR ---
Behavior Intervention Response and Plan: BIRP Note: Behavior: Assumed Care of patient, patient located in Day Room at shift change. Patient exhibited the following behavior Calm, Compliant, Cooperative. Brief assessment on rounds of vital signs, medication needs, lab studies, and pain. Treatment plan problems Dementia with BD and Fall Risk. Intervention: Patient assessed and the following interventions initiated safety checks 15 Minute Checks Cognitive Assessment , Head to toe Assessment , Medications. Response: After interactions and interventions patient responded in the following manner, Calm , Compliant ,Cooperative. Continue to assess behaviors and condition will continue to monitor throughout the shift as needed. Patient educated on ADL's, and hand hygiene. 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 Continue to assess patient for changes in above assessment. Monitor for medication needs, pain, and safety concerns. Hourly rounding performed to ensure safe environment.
[2017-01-28 06:26] VITALS: BP 137/61
[2017-01-28 07:48] LABS: BASO # 0.1 x10^3/uL (0.0-0.2); BASO % 2 % (0-3); EOS # 0.2 x10^3/uL (0.0-0.7); EOS % 4 % (0-3); HEMATOCRIT 31.8 % (36.0-47.0); HEMOGLOBIN 10.6 g/dL (12.0-15.5); LYMPH # 1.5 x10^3/uL (1.0-4.8); LYMPH % 37 % (24-48); MEAN CORPUSCULAR HEMOGLOBIN 31 pg (25-35); MEAN CORPUSCULAR HGB CONC 33 g/dL (31-37); MEAN CORPUSCULAR VOLUME 93 fL (79-100); MONO # 0.5 x10^3/uL (0.0-1.1); MONO % 13 % (0-9); NEUT # 1.8 x10^3uL (1.8-7.7); NEUT % 44 % (31-73); PLATELET COUNT 151 x10^3/uL (140-400); RED BLOOD COUNT 3.43 x10^6/uL (3.50-5.40); RED CELL DISTRIBUTION WIDTH 17.1 % (11.5-14.5); WHITE BLOOD COUNT 4.1 x10^3/uL (4.0-11.0)
[2017-01-28 08:02] LABS: ALBUMIN 3.8 g/dL (3.4-5.0); ALBUMIN/GLOBULIN RATIO 1.2 (1.0-1.7); GFR 52.6; POTASSIUM 4.5 mmol/L (3.5-5.1); TOTAL BILIRUBIN 0.2 mg/dL (0.2-1.0); TOTAL PROTEIN 6.9 g/dL (6.4-8.2)
[2017-01-28] MEDS: FERROUS SULFATE 325 MG TABLET. PO SCH (08:47)
[2017-01-28] MEDS: PRENATAL MULTIVITAMIN TABLET. PO SCH (08:47)
[2017-01-28] MEDS: SERTRALINE 50 MG TABLET. PO SCH (08:47)
[2017-01-28] MEDS: metroNIDAZOLE 500 MG TABLET PO SCH ×2 (08:48→16:45)
[2017-01-28] MEDS: CETIRIZINE HCL 10 MG TABLET PO SCH (08:48)
[2017-01-28] MEDS: DICLOFENAC SODIUM 1% TOPICAL GEL 100GM TUBE. TP SCH ×2 (08:48→20:02)
[2017-01-28] MEDS: CALCIUM CARB/VIT D3 500/200 TABLET PO SCH ×2 (08:48→16:44)
[2017-01-28] MEDS: CHOLECALCIFEROL (VITAMIN D3) 1,000 UNIT TABLET PO SCH (08:48)
[2017-01-28] MEDS: amLODIPine BESYLATE 10 MG TABLET PO SCH (08:48)
[2017-01-28] MEDS: CYANOCOBALAMIN (VITAMIN B-12) 1,000 MCG TABLET. PO SCH (08:48)
[2017-01-28] MEDS: ASPIRIN ENTERIC COATED 81 MG TABLET.DR. PO SCH (08:48)
[2017-01-28] MEDS: FLUTICASONE 50MCG/NASAL SPRAY 16GM BOTTLE. NS SCH (08:49)
[2017-01-28] MEDS: MIRABEGRON 25 MG TAB.ER.24H PO SCH (08:49)
[2017-01-28] MEDS: ACYCLOVIR 200 MG CAPSULE PO SCH ×2 (08:49→20:02)
--- NOTE | 2017-01-28 09:26 | PN ---
DATE: 01/26/2017 PSYCHIATRIC PROGRESS NOTE This is a late entry of 01/26/2017 covers elements not covered in my initial note of 01/26/2017. Overall, the patient has had a better night the previous evening, better day, less anxious, seems a little more coherent at times, drowsy, compliant. REVIEW OF SYSTEMS: Ambulation impaired, in wheelchair. No CV, , pulmonary, eye, ENT system symptoms on review. Reliability poor. MENTAL STATUS EXAM: Oriented to herself. Insight, judgment, recent and remote memory, attention, concentration, fund of knowledge poor, consistent with her diagnosis mentioned in my initial note. IMPRESSION: Major neurocognitive disorder; Alzheimer, vascular with depression, delusion; major depressive disorder with psychotic features. Rest unchanged. PLAN: Continue current psychotropics mentioned in my initial note. MAN Abdi GRAHAM MD DR: MARY/lawanda JOB#: [id number] / [id number]
--- NOTE | 2017-01-28 09:51 | NUR ---
Behavior Intervention Response and Plan: BIRP Note: Behavior: Assumed Care of patient, patient located in Patient Room at shift change. Patient exhibited the following behavior Calm, Interactive, Compliant. Brief assessment on rounds of vital signs, medication needs, lab studies, and pain. Treatment plan problems 1-2. Intervention: Patient assessed and the following interventions initiated safety checks 15 Minute Checks Personal Alarm in place , Cognitive Assessment , Head to toe Assessment. Response: After interactions and interventions patient responded in the following manner, Calm , Cooperative ,Compliant. Continue to assess behaviors and condition will continue to monitor throughout the shift as needed. Patient educated on ADL's, and hand hygiene. 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 Continue to assess patient for changes in above assessment. Monitor for medication needs, pain, and safety concerns. Hourly rounding performed to ensure safe environment.
--- NOTE | 2017-01-28 11:26 | NUR ---
[facility] faxed updated clinicals to [facility]. [facility] has not received a return call from [facility] to further discuss dc plans. [facility] will request a call on the cover sheet of the fax.
[2017-01-28 15:42] VITALS: BP 143/59
[2017-01-28] MEDS: WARFARIN 2.5 MG TABLET. PO SCH (16:45)
[2017-01-28] MEDS: WARFARIN 1 MG TABLET. PO SCH (16:45)
[2017-01-28] MEDS: DONEPEZIL HCL 10 MG TABLET PO SCH (19:59)
[2017-01-28] MEDS: MIRTAZAPINE 15 MG TABLET PO SCH (20:00)
[2017-01-28] MEDS: QUEtiapine 25 MG TABLET. PO SCH (20:01)
--- NOTE | 2017-01-28 20:10 | PDOC ---
Exam Note: Matteo Note: Please also refer to the separate dictated note~for this date of service dictated separately.~Patient seen individually. Discussed the patient with Nursing staff reviewed the chart.~Reviewed interim history and current functioning. Reviewed vital signs,~Labs/ Radiology~and current medications noted below. Continue current treatment with the changes noted in the dictated addendum note Assessment: Vital Signs: Vital Signs Date Time Temp Pulse Resp B/P (MAP) Pulse Ox O2 Delivery O2 Flow Rate FiO2 01/28/17 15:42 98.0 63 16 143/59 (87) 96 01/24/17 16:57 Room Air I&O Intake and Output 01/28/17 07:00 Intake Total 720 ml Balance 720 ml Intake Oral 720 ml Labs: Laboratory Tests Test 01/28/17 07:34 White Blood Count 4.1 x10^3/uL (4.0-11.0) Red Blood Count 3.43 x10^6/uL (3.50-5.40) L Hemoglobin 10.6 g/dL (12.0-15.5) L Hematocrit 31.8 % (36.0-47.0) L Mean Corpuscular Volume 93 fL (79-100) Mean Corpuscular Hemoglobin 31 pg (25-35) Mean Corpuscular Hemoglobin Concent 33 g/dL (31-37) Red Cell Distribution Width 17.1 % (11.5-14.5) H Platelet Count 151 x10^3/uL (140-400) Neutrophils (%) (Auto) 44 % (31-73) Lymphocytes (%) (Auto) 37 % (24-48) Monocytes (%) (Auto) 13 % (0-9) H Eosinophils (%) (Auto) 4 % (0-3) H Basophils (%) (Auto) 2 % (0-3) Neutrophils # (Auto) 1.8 x10^3uL (1.8-7.7) Lymphocytes # (Auto) 1.5 x10^3/uL (1.0-4.8) Monocytes # (Auto) 0.5 x10^3/uL (0.0-1.1) Eosinophils # (Auto) 0.2 x10^3/uL (0.0-0.7) Basophils # (Auto) 0.1 x10^3/uL (0.0-0.2) Sodium Level 144 mmol/L (136-145) Potassium Level 4.5 mmol/L (3.5-5.1) Chloride Level 107 mmol/L (98-107) Carbon Dioxide Level 31 mmol/L (21-32) Anion Gap 6 (6-14) Blood Urea Nitrogen 25 mg/dL (7-20) H Creatinine 1.0 mg/dL (0.6-1.0) Estimated GFR (Cockcroft-Gault) 52.6 BUN/Creatinine Ratio 25 (6-20) H Glucose Level 102 mg/dL (70-99) H Calcium Level 10.0 mg/dL (8.5-10.1) Total Bilirubin 0.2 mg/dL (0.2-1.0) Aspartate Amino Transferase (AST) 25 U/L (15-37) Alanine Aminotransferase (ALT) 23 U/L (14-59) Alkaline Phosphatase 48 U/L (46-116) Total Protein 6.9 g/dL (6.4-8.2) Albumin 3.8 g/dL (3.4-5.0) Albumin/Globulin Ratio 1.2 (1.0-1.7) Current Medications: Meds: Current Medications Acetaminophen (Tylenol) 650 mg PRN Q6HRS PRN PO PAIN / TEMP; Start 01/23/17 at 00:45; Status Cancel Multi-Ingredient Ointment (Analgesic [place]) 1 samantha PRN QID PRN TP MUSCLE PAIN; Start 01/23/17 at 00:45 Al Hydroxide/Mg Hydroxide (Mylanta Plus Xs) 15 ml PRN AFTMEALHC PRN PO DYSPEPSIA; Start 01/23/17 at 00:45 Magnesium Hydroxide (Milk Of Magnesia) 2,400 mg PRN QHS PRN PO CONSTIPATION; Start 01/23/17 at 00:45 Alprazolam (Xanax) 0.25 mg PRN Q6HRS PRN PO ANXIETY / AGITATION Last administered on 01/24/17 21:30; Start 01/23/17 at 01:00 Donepezil HCl (Aricept) 10 mg HS PO Last administered on 01/28/17 19:59; Start 01/23/17 at 21:00 Lorazepam (Ativan) 0.5 mg PRN Q6HRS PRN PO ANXIETY / AGITATION; Start at 01:00; Stop 01/25/17 at 19:34; Status DC Mirtazapine (Remeron) 7.5 mg HS PO Last administered on 01/28/17 20:00; Start 01/23/17 at 21:00 Quetiapine Fumarate (SEROquel) 12.5 mg HS PO Last administered on 01/28/17 20 :01; Start 01/23/17 at 21:00 Sertraline HCl (Zoloft) 50 mg DAILY PO Last administered on 01/28/17 08:47; Start 01/23/17 at 09:00; Stop 01/28/17 at 16:30; Status DC Acetaminophen (Tylenol) 1,000 mg PRN Q6HRS PRN PO PAIN / TEMP; Start 01/23/17 at 05:45 Acetaminophen (Tylenol) 650 mg PRN Q6HRS PRN PO PAIN / TEMP; Start 01/23/17 at 05:45 Amlodipine Besylate (Norvasc) 10 mg DAILY PO Last administered on 01/28/17 08 :48; Start 01/23/17 at 09:00 Aspirin (Aspirin Enteric Coated) 81 mg DAILY PO Last administered on 08:48; Start 01/23/17 at 09:00 Calcium/Vitamin D (Oscal D 500mg/ 200uts) 1 tab BIDWMEALS PO Last administered on 01/28/17 16:44; Start 01/23/17 at 08:00 Vitamin D (Vitamin D3) 1,000 unit DAILY PO Last administered on 01/28/17 08: 48; Start 01/23/17 at 09:00 Diclofenac Sodium (Voltaren) 1 samantha BID TP Last administered on 01/28/17 20:02 ; Start 01/23/17 at 09:00 Ferrous Sulfate (Feosol) 325 mg DAILY PO Last administered on 01/28/17 08:47 ; Start 01/23/17 at 09:00 Fluticasone Propionate (Flonase) 1 spray DAILY NS Last administered on 08:49; Start 01/23/17 at 09:00 Tramadol HCl (Ultram) 50 mg PRN Q6HRS PRN PO PAIN; Start 01/23/17 at 05:45 Warfarin Sodium (Coumadin) 2.5 mg DAILY16 PO Last administered on 01/28/17 16 :45; Start 01/23/17 at 16:00 Acyclovir (Zovirax) 400 mg BID PO Last administered on 01/28/17 20:02; Start 01/23/17 at 09:00 Cetirizine HCl (ZyrTEC) 10 mg DAILY PO Last administered on 01/28/17 08:48; Start 01/23/17 at 09:00 Warfarin Sodium (Coumadin) 1 mg DAILY16 PO Last administered on 01/28/17 16: 45; Start 01/23/17 at 16:00 Warfarin Sodium (Coumadin Per Physician) 1 each PRN DAILY PRN MC SEE COMMENTS; Start 01/23/17 at 08:00; Stop 01/26/17 at 19:20; Status DC Metronidazole (Flagyl) 500 mg BID76 PO Last administered on 01/23/17 18:40; Start 01/23/17 at 18:00; Stop 01/24/17 at 04:41; Status DC Prenat Multivit/ [employer]/Iron/Folic Ac (Multivitamin ) 1 tab DAILY PO Last administered on 01/28/17 08:47; Start 01/24/17 at 09:00 Cyanocobalamin (Vitamin B-12) 1,000 mcg DAILY PO Last administered on 08:48; Start 01/24/17 at 09:00 Metronidazole (Flagyl) 500 mg BIDWMEALS PO Last administered on 01/28/17 16: 45; Start 01/24/17 at 08:00; Stop 01/29/17 at 07:59 Olanzapine (ZyPREXA ZYDIS) 1.25 mg PRN Q2HR PRN PO ANXIETY / AGITATION; Start 01/25/17 at 19:45 Warfarin Sodium (Coumadin Per Pharmacy) 1 each PRN DAILY PRN MC SEE COMMENTS; Start 01/26/17 at 19:30 Sertraline HCl (Zoloft) 75 mg DAILY PO ; Start 01/29/17 at 09:00 Active Scripts Active Reported Alprazolam 0.25 Mg Tablet 0.25 Mg PO PRN Q6HRS PRN Warfarin Sodium 3 Mg Tablet 3.5 Mg PO HS Voltaren (Diclofenac Sodium) 100 Gm Gel..gram. 1 Samantha TP BID Acetaminophen 500 Mg Tablet 1,000 Mg PO PRN Q6HRS PRN Tramadol Hcl (Tramadol HCl) 50 Mg Tablet 50 Mg PO PRN Q6HRS PRN Zoloft (Sertraline Hcl) 50 Mg Tablet 50 Mg PO DAILY Seroquel (Quetiapine Fumarate) 25 Mg Tablet 12.5 Mg PO HS Oyster Shell 500 Mg + Vit D Tb (Calcium Carbonate/Vitamin D3) 1 Each Tablet 1 Tab PO BID Myrbetriq (Mirabegron) 25 Mg Tab.er.24h 25 Mg PO DAILY Mirtazapine 15 Mg Tablet 7.5 Mg PO HS Loratadine 10 Mg Tablet 10 Mg PO DAILY Fluticasone Propionate Nasal [place] (Fluticasone Propionate) 16 Gm Novelty.susp 1 Novelty NS DAILY Ferrous Sulfate 325 Mg Tablet 325 Mg PO DAILY Vitamin D3 (Cholecalciferol (Vitamin D3)) 1,000 Unit Tablet 1,000 Unit PO DAILY Lorazepam 0.5 Mg Tablet 0.5 Mg PO PRN Q6HRS PRN Aspir-Low (Aspirin) 81 Mg Tablet.dr 81 Mg PO DAILY Aricept (Donepezil Hcl) 10 Mg Tablet 10 Mg PO HS Amlodipine Besylate 10 Mg Tablet 10 Mg PO DAILY Acyclovir 400 Mg Tablet 400 Mg PO BID Tylenol (Acetaminophen) 325 Mg Tablet 650 Mg PO PRN Q6HRS PRN I have reviewed the current psychotropics carefully including drug interactions. Risk benefit ratio favors no change other than as noted in my dictated progress note. 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
--- NOTE | 2017-01-28 22:00 | NUR ---
Behavior Intervention Response and Plan: BIRP Note: Behavior: Assumed Care of patient, patient located in Day Room at shift change. Patient exhibited the following behavior Calm, Interactive, Cooperative. Brief assessment on rounds of vital signs, medication needs, lab studies, and pain. Treatment plan problems 1 and 2. Intervention: Patient assessed and the following interventions initiated safety checks 15 Minute Checks Cognitive Assessment , Head to toe Assessment , Medications. Response: After interactions and interventions patient responded in the following manner, Calm , Compliant ,Cooperative. Continue to assess behaviors and condition will continue to monitor throughout the shift as needed. Patient educated on ADL's, and hand hygiene. Plan: Continue to monitor Master Treatment Plan for patient's progress toward short term goals of Improved Mood, No harm To self/ others, [facility] goals to return to previous living setting vs placement. Continue to assess patient for changes in above assessment. Monitor for medication needs, pain, and safety concerns. Hourly rounding performed to ensure safe environment.
[2017-01-29 05:55] VITALS: BP 156/64
--- NOTE | 2017-01-29 08:30 | NUR ---
Patient is in bed asleep at this time. Will let her sleep and hold her morning meds and breakfast tray until later.
--- NOTE | 2017-01-29 10:08 | PN ---
DATE: 01/27/2017 This late entry 01/27/2017 covers elements not covered in my initial note 01/27/2017. Met with the patient in the evening of 01/27/2017. The patient has been alert, oriented x 3, which is better than how she appeared initially. At times, she gets a little suspicious. REVIEW OF SYSTEMS: Ambulation impaired, in wheelchair. No CV, , pulmonary, eye, ENT system symptoms on review. MENTAL STATUS EXAM: Oriented to herself and situation. Speech has some latency, coherent. Abstraction fair, computation impaired, language function intact. Mood and affect showing some improvement, improved lability, still somewhat anxious, depressed. LABORATORY DATA: Reviewed. IMPRESSION: Major neurocognitive disorder, early Alzheimer, vascular with delusion, depression, major depressive disorder with psychotic features. Rest unchanged from initial note. PLAN: Increase Zoloft from 50 mg a day to 75 mg a day. Continue rest unchanged. She slept 7 hours previous evening. MAN Abdi GRAHAM MD DR: MARY/lawanda JOB#: [id number] / [id number]
[2017-01-29] MEDS: CETIRIZINE HCL 10 MG TABLET PO SCH (11:10)
[2017-01-29] MEDS: PRENATAL MULTIVITAMIN TABLET. PO SCH (11:10)
[2017-01-29] MEDS: CYANOCOBALAMIN (VITAMIN B-12) 1,000 MCG TABLET. PO SCH (11:10)
[2017-01-29] MEDS: CALCIUM CARB/VIT D3 500/200 TABLET PO SCH ×2 (11:10→15:59)
[2017-01-29] MEDS: CHOLECALCIFEROL (VITAMIN D3) 1,000 UNIT TABLET PO SCH (11:10)
[2017-01-29] MEDS: MIRABEGRON 25 MG TAB.ER.24H PO SCH (11:11)
[2017-01-29] MEDS: FERROUS SULFATE 325 MG TABLET. PO SCH (11:11)
[2017-01-29] MEDS: ACYCLOVIR 200 MG CAPSULE PO SCH ×2 (11:11→20:14)
[2017-01-29] MEDS: amLODIPine BESYLATE 10 MG TABLET PO SCH (11:11)
[2017-01-29] MEDS: ASPIRIN ENTERIC COATED 81 MG TABLET.DR. PO SCH (11:11)
[2017-01-29] MEDS: FLUTICASONE 50MCG/NASAL SPRAY 16GM BOTTLE. NS SCH (11:16)
[2017-01-29] MEDS: DICLOFENAC SODIUM 1% TOPICAL GEL 100GM TUBE. TP SCH ×2 (11:16→20:14)
[2017-01-29] MEDS: SERTRALINE 50 MG TABLET. PO SCH (11:16)
--- NOTE | 2017-01-29 11:30 | NUR ---
Behavior Intervention Response and Plan: BIRP Note: Behavior: Assumed Care of patient, patient located in Day Room at shift change. Patient exhibited the following behavior Disorganized, Interactive, Social. Brief assessment on rounds of vital signs, medication needs, lab studies, and pain. Treatment plan problems 1 & 2. Intervention: Patient assessed and the following interventions initiated safety checks 15 Minute Checks Cognitive Assessment , Head to toe Assessment , Medications. Response: After interactions and interventions patient responded in the following manner, Calm , Appropriate ,Compliant. Continue to assess behaviors and condition will continue to monitor throughout the shift as needed. Patient educated on ADL's, and hand hygiene. 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 Continue to assess patient for changes in above assessment. Monitor for medication needs, pain, and safety concerns. Hourly rounding performed to ensure safe environment.
--- NOTE | 2017-01-29 12:08 | NUR ---
Pharmacy Warfarin Dosing Note S:Pharmacy consulted to assist with anticoagulation therapy started with target INR: 2 -3 O:YOLIE SIMON is a 86 year old F with Atrial Fibrillation LABS: Last INR: 1.3 Last HGB: 10.6 Last HCT: 31.8 Last PLT: 151 Last dose of 3.5MG given on 01/28/17 at Previous Regimen: 3.5MG DAILY Vitamin K given: Drug Interaction Changes: Ongoing Drug Interactions: A:INR Below desired Range. Target Range for this patient is: 2 -3 P: Warfarin dose: 3.5MG Today at 1600 Bridge Therapy: Next INR due IN AM Pharmacy anticoagulation service will continue to follow. AMAURI LAM [facility], 01/29/17 [id number]
--- NOTE | 2017-01-29 15:00 | NUR ---
WEEKLY THERAPEUTIC RECREATION NOTE Date of Admission: 01/23/2017 Date of AT Assessment:01/25/2017 Goal aimed: to increase socialization and motivation Initial goal: Pt. will participate in all groups she is invited to. Weekly progress towards goal: on track Group participation level: Moderate to full participation. Behaviors observed: Around group most of the day, pleasant, needing a little more prompting this week (more sleepy) Plan: no changes towards goal
[2017-01-29 15:39] VITALS: BP 123/68
[2017-01-29] MEDS: WARFARIN 2.5 MG TABLET. PO SCH (15:58)
[2017-01-29] MEDS: WARFARIN 1 MG TABLET. PO SCH (15:58)
--- NOTE | 2017-01-29 17:28 | NUR ---
SW met w/pt while pt sat in the day room. SW told pt she would be returning to [facility] on Friday. Pt. stated she liked living there for the most part. SW asked if pt was agreeable to returning to their skilled unit to continue to build strength and pt was agreeable. Pt appeared to have increased clarity compared to last discussion SW had w/pt. Activities Therapist entered room and pt. began laughing and interacting appropriately w/AT. SW stated she would follow up in the am. Pt agreeable.
[2017-01-29] MEDS: MIRTAZAPINE 15 MG TABLET PO SCH (20:12)
[2017-01-29] MEDS: QUEtiapine 25 MG TABLET. PO SCH (20:12)
[2017-01-29] MEDS: DONEPEZIL HCL 10 MG TABLET PO SCH (20:12)
--- NOTE | 2017-01-29 21:27 | PDOC ---
Exam Note: Matteo Note: Please also refer to the separate dictated note~for this date of service dictated separately.~Patient seen individually. Discussed the patient with Nursing staff reviewed the chart.~Reviewed interim history and current functioning. Reviewed vital signs,~Labs/ Radiology~and current medications noted below. Continue current treatment with the changes noted in the dictated addendum note Assessment: Vital Signs: Vital Signs Date Time Temp Pulse Resp B/P (MAP) Pulse Ox O2 Delivery O2 Flow Rate FiO2 01/29/17 15:39 97.6 58 18 123/68 (86) 99 01/24/17 16:57 Room Air I&O Intake and Output 01/29/17 07:00 Intake Total 960 ml Balance 960 ml Intake Oral 960 ml # Voids 2 Current Medications: Meds: Current Medications Acetaminophen (Tylenol) 650 mg PRN Q6HRS PRN PO PAIN / TEMP; Start 01/23/17 at 00:45; Status Cancel Multi-Ingredient Ointment (Analgesic [place]) 1 samantha PRN QID PRN TP MUSCLE PAIN; Start 01/23/17 at 00:45 Al Hydroxide/Mg Hydroxide (Mylanta Plus Xs) 15 ml PRN AFTMEALHC PRN PO DYSPEPSIA; Start 01/23/17 at 00:45 Magnesium Hydroxide (Milk Of Magnesia) 2,400 mg PRN QHS PRN PO CONSTIPATION; Start 01/23/17 at 00:45 Alprazolam (Xanax) 0.25 mg PRN Q6HRS PRN PO ANXIETY / AGITATION Last administered on 01/24/17 21:30; Start 01/23/17 at 01:00 Donepezil HCl (Aricept) 10 mg HS PO Last administered on 01/29/17 20:12; Start 01/23/17 at 21:00 Lorazepam (Ativan) 0.5 mg PRN Q6HRS PRN PO ANXIETY / AGITATION; Start at 01:00; Stop 01/25/17 at 19:34; Status DC Mirtazapine (Remeron) 7.5 mg HS PO Last administered on 01/29/17 20:12; Start 01/23/17 at 21:00 Quetiapine Fumarate (SEROquel) 12.5 mg HS PO Last administered on 01/29/17 20 :12; Start 01/23/17 at 21:00 Sertraline HCl (Zoloft) 50 mg DAILY PO Last administered on 01/28/17 08:47; Start 01/23/17 at 09:00; Stop 01/28/17 at 16:30; Status DC Acetaminophen (Tylenol) 1,000 mg PRN Q6HRS PRN PO PAIN / TEMP; Start 01/23/17 at 05:45 Acetaminophen (Tylenol) 650 mg PRN Q6HRS PRN PO PAIN / TEMP; Start 01/23/17 at 05:45 Amlodipine Besylate (Norvasc) 10 mg DAILY PO Last administered on 01/29/17 11 :11; Start 01/23/17 at 09:00 Aspirin (Aspirin Enteric Coated) 81 mg DAILY PO Last administered on 11:11; Start 01/23/17 at 09:00 Calcium/Vitamin D (Oscal D 500mg/ 200uts) 1 tab BIDWMEALS PO Last administered on 01/29/17 15:59; Start 01/23/17 at 08:00 Vitamin D (Vitamin D3) 1,000 unit DAILY PO Last administered on 01/29/17 11: 10; Start 01/23/17 at 09:00 Diclofenac Sodium (Voltaren) 1 samantha BID TP Last administered on 01/29/17 20:14 ; Start 01/23/17 at 09:00 Ferrous Sulfate (Feosol) 325 mg DAILY PO Last administered on 01/29/17 11:11 ; Start 01/23/17 at 09:00 Fluticasone Propionate (Flonase) 1 spray DAILY NS Last administered on 11:16; Start 01/23/17 at 09:00 Tramadol HCl (Ultram) 50 mg PRN Q6HRS PRN PO PAIN; Start 01/23/17 at 05:45 Warfarin Sodium (Coumadin) 2.5 mg DAILY16 PO Last administered on 01/29/17 15 :58; Start 01/23/17 at 16:00 Acyclovir (Zovirax) 400 mg BID PO Last administered on 01/29/17 20:14; Start 01/23/17 at 09:00 Cetirizine HCl (ZyrTEC) 10 mg DAILY PO Last administered on 01/29/17 11:10; Start 01/23/17 at 09:00 Warfarin Sodium (Coumadin) 1 mg DAILY16 PO Last administered on 01/29/17 15: 58; Start 01/23/17 at 16:00 Warfarin Sodium (Coumadin Per Physician) 1 each PRN DAILY PRN MC SEE COMMENTS; Start 01/23/17 at 08:00; Stop 01/26/17 at 19:20; Status DC Metronidazole (Flagyl) 500 mg BID76 PO Last administered on 01/23/17 18:40; Start 01/23/17 at 18:00; Stop 01/24/17 at 04:41; Status DC Prenat Multivit/ [place]/Iron/Folic Ac (Multivitamin ) 1 tab DAILY PO Last administered on 01/29/17 11:10; Start 01/24/17 at 09:00 Cyanocobalamin (Vitamin B-12) 1,000 mcg DAILY PO Last administered on 11:10; Start 01/24/17 at 09:00 Metronidazole (Flagyl) 500 mg BIDWMEALS PO Last administered on 01/28/17 16: 45; Start 01/24/17 at 08:00; Stop 01/29/17 at 07:59; Status DC Olanzapine (ZyPREXA ZYDIS) 1.25 mg PRN Q2HR PRN PO ANXIETY / AGITATION; Start 01/25/17 at 19:45 Warfarin Sodium (Coumadin Per Pharmacy) 1 each PRN DAILY PRN MC SEE COMMENTS Last administered on 01/29/17 12:15; Start 01/26/17 at 19:30 Sertraline HCl (Zoloft) 75 mg DAILY PO Last administered on 01/29/17 11:16; Start 01/29/17 at 09:00 Active Scripts Active Reported Alprazolam 0.25 Mg Tablet 0.25 Mg PO PRN Q6HRS PRN Warfarin Sodium 3 Mg Tablet 3.5 Mg PO HS Voltaren (Diclofenac Sodium) 100 Gm Gel..gram. 1 Samantha TP BID Acetaminophen 500 Mg Tablet 1,000 Mg PO PRN Q6HRS PRN Tramadol Hcl (Tramadol HCl) 50 Mg Tablet 50 Mg PO PRN Q6HRS PRN Zoloft (Sertraline Hcl) 50 Mg Tablet 50 Mg PO DAILY Seroquel (Quetiapine Fumarate) 25 Mg Tablet 12.5 Mg PO HS Oyster Shell 500 Mg + Vit D Tb (Calcium Carbonate/Vitamin D3) 1 Each Tablet 1 Tab PO BID Myrbetriq (Mirabegron) 25 Mg Tab.er.24h 25 Mg PO DAILY Mirtazapine 15 Mg Tablet 7.5 Mg PO HS Loratadine 10 Mg Tablet 10 Mg PO DAILY Fluticasone Propionate Nasal [place] (Fluticasone Propionate) 16 Gm [place].susp 1 [place] NS DAILY Ferrous Sulfate 325 Mg Tablet 325 Mg PO DAILY Vitamin D3 (Cholecalciferol (Vitamin D3)) 1,000 Unit Tablet 1,000 Unit PO DAILY Lorazepam 0.5 Mg Tablet 0.5 Mg PO PRN Q6HRS PRN Aspir-Low (Aspirin) 81 Mg Tablet.dr 81 Mg PO DAILY Aricept (Donepezil Hcl) 10 Mg Tablet 10 Mg PO HS Amlodipine Besylate 10 Mg Tablet 10 Mg PO DAILY Acyclovir 400 Mg Tablet 400 Mg PO BID Tylenol (Acetaminophen) 325 Mg Tablet 650 Mg PO PRN Q6HRS PRN I have reviewed the current psychotropics carefully including drug interactions. Risk benefit ratio favors no change other than as noted in my dictated progress note. 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
--- NOTE | 2017-01-29 22:11 | NUR ---
Behavior Intervention Response and Plan: BIRP Note: Behavior: Assumed Care of patient, patient located in Day Room at shift change. Patient exhibited the following behavior Calm, Drowsy, Sleeping. Brief assessment on rounds of vital signs, medication needs, lab studies, and pain. Treatment plan problems Dementia with BD and Fall Risk. Intervention: Patient assessed and the following interventions initiated safety checks 15 Minute Checks Personal Alarm in place , Cognitive Assessment , Medications. Response: After interactions and interventions patient responded in the following manner, Calm , Sleeping ,Drowsy. Continue to assess behaviors and condition will continue to monitor throughout the shift as needed. Patient educated on ADL's, and hand hygiene. Plan: Continue to monitor Master Treatment Plan for patient's progress toward short term goals of Decreased Agitation, Decreased Anxiety, senior living goals to return to previous living setting vs placement. Continue to assess patient for changes in above assessment. Monitor for medication needs, pain, and safety concerns. Hourly rounding performed to ensure safe environment.
--- NOTE | 2017-01-30 03:22 | PN ---
DATE: 01/28/2017 This late entry 01/28/2017 covers elements not covered in my initial note 01/28/2017. SUBJECTIVE: I met with the patient evening of 01/28/2017. The patient has been more drowsy, was in the wheelchair in the morning, using a walker in the afternoon, a little more awake in the evening when I met with her. Still depressed, but less psychotic, less agitated. REVIEW OF SYSTEMS: Ambulation impaired. No CV, , pulmonary, eye, ENT system symptoms on review. Reliability poor. MENTAL STATUS EXAM: Oriented to herself and situation. Speech moderate latency, often responses monosyllabic. Abstraction fair, computation impaired, language function intact, attention span short. Mood and affect remains withdrawn, but better than before. LABORATORY DATA: Reviewed. IMPRESSION: Major depressive disorder with psychotic features in partial remission, mild cognitive impairment; anxiety disorder, unspecified. Rest unchanged from initial note. PLAN: Continue psychotropics mentioned in my initial note. Adjust further as clinically indicated. HARRISON GRAHAM MD DR: MARY/lawanda JOB#: [id number] / [id number]
[2017-01-30 05:47] VITALS: BP 157/69
[2017-01-30] MEDS: SERTRALINE 50 MG TABLET. PO SCH (07:52)
[2017-01-30] MEDS: CYANOCOBALAMIN (VITAMIN B-12) 1,000 MCG TABLET. PO SCH (07:52)
[2017-01-30] MEDS: CETIRIZINE HCL 10 MG TABLET PO SCH (07:53)
[2017-01-30] MEDS: FERROUS SULFATE 325 MG TABLET. PO SCH (07:53)
[2017-01-30] MEDS: amLODIPine BESYLATE 10 MG TABLET PO SCH (07:53)
[2017-01-30] MEDS: ASPIRIN ENTERIC COATED 81 MG TABLET.DR. PO SCH (07:53)
[2017-01-30] MEDS: CHOLECALCIFEROL (VITAMIN D3) 1,000 UNIT TABLET PO SCH (07:53)
[2017-01-30] MEDS: CALCIUM CARB/VIT D3 500/200 TABLET PO SCH ×2 (07:53→16:21)
[2017-01-30] MEDS: ACYCLOVIR 200 MG CAPSULE PO SCH ×2 (07:56→19:29)
[2017-01-30] MEDS: PRENATAL MULTIVITAMIN TABLET. PO SCH (07:56)
[2017-01-30] MEDS: MIRABEGRON 25 MG TAB.ER.24H PO SCH (07:56)
[2017-01-30] MEDS: DICLOFENAC SODIUM 1% TOPICAL GEL 100GM TUBE. TP SCH ×2 (07:57→19:42)
[2017-01-30] MEDS: FLUTICASONE 50MCG/NASAL SPRAY 16GM BOTTLE. NS SCH (07:57)
--- NOTE | 2017-01-30 09:25 | NUR ---
Behavior Intervention Response and Plan: BIRP Note: Behavior: Assumed Care of patient, patient located in Day Room at shift change. Patient exhibited the following behavior Disorganized, Interactive, Appropriate. Brief assessment on rounds of vital signs, medication needs, lab studies, and pain. Treatment plan problems 1 & 2. Intervention: Patient assessed and the following interventions initiated safety checks 15 Minute Checks Cognitive Assessment , Head to toe Assessment , Medications. Response: After interactions and interventions patient responded in the following manner, Calm , Appropriate ,Compliant. Continue to assess behaviors and condition will continue to monitor throughout the shift as needed. Patient educated on ADL's, and hand hygiene. 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 Continue to assess patient for changes in above assessment. Monitor for medication needs, pain, and safety concerns. Hourly rounding performed to ensure safe environment.
--- NOTE | 2017-01-30 12:00 | NUR ---
INDU met w/pt's brother/dpoa, Bree during noon visiting hours. Bree prefers to transport pt back to [facility]. He is still unsure what their plan is w/the 30 day notice they provided pt when pt arrived at this facility. INDU stated they may re-evaluate once she returns to decide if her changes are more in compliance w/their guidelines and dismiss the notice. Bree asked about the [facility] and when it would be appropriate to transition pt to memory care unit. INDU stated that decision is ultimately up to him and [facility]. INDU provided information about the advantages of pt transitioning to a memory care unit as her memory declines. Bree stated he would be touring the [facility] also when he leaves today so that he could make a more informed decision. Bree to contact this INDU w/a shrimp picker time for dc on Friday.
--- NOTE | 2017-01-30 13:59 | NUR ---
Pharmacy Warfarin Dosing Note S:Pharmacy consulted to assist with anticoagulation therapy started with target INR: 2 -3 O:YOLIE SIMON is a 86 year old F with Atrial Fibrillation LABS: Last INR: 1.8 Last HGB: 10.6 Last HCT: 31.8 Last PLT: 151 Last dose of 3.5MG given on 01/28/17 Previous Regimen: HOME DOSE COUMADIN 3.5MG DAILY Vitamin K given: NO A: The INR is still below the desired range, but trending upwards. Will continue her home dose and recheck the INR on 02/01/17. Target Range for this patient is: 2 -3. P: Warfarin dose: Continue Coumadin 3.5mg po daily. Bridge Therapy: none Next INR due 02/01/17 Pharmacy anticoagulation service will continue to follow. JULIAN KIM RPH 01/30/17 1400
[2017-01-30 16:00] VITALS: BP 96/52
[2017-01-30] MEDS: WARFARIN 1 MG TABLET. PO SCH (16:20)
[2017-01-30] MEDS: WARFARIN 2.5 MG TABLET. PO SCH (16:21)
[2017-01-30] MEDS: MIRTAZAPINE 15 MG TABLET PO SCH (19:30)
[2017-01-30] MEDS: DONEPEZIL HCL 10 MG TABLET PO SCH (19:30)
--- NOTE | 2017-01-30 19:30 | NUR ---
Behavior Intervention Response and Plan: BIRP Note: Behavior: Assumed Care of patient, patient located in Patient Room at shift change. Patient exhibited the following behavior Interactive, Calm, Cooperative. Brief assessment on rounds of vital signs, medication needs, lab studies, and pain. Treatment plan problems . Intervention: Patient assessed and the following interventions initiated safety checks 15 Minute Checks Cognitive Assessment , Head to toe Assessment , Medications. Response: After interactions and interventions patient responded in the following manner, Interactive , Calm ,Social. Continue to assess behaviors and condition will continue to monitor throughout the shift as needed. Patient educated on ADL's, and hand hygiene. Plan: Continue to monitor Master Treatment Plan for patient's progress toward short term goals of Decreased Agitation, Medication Compliance, [place] goals to return to previous living setting vs placement. Continue to assess patient for changes in above assessment. Monitor for medication needs, pain, and safety concerns. Hourly rounding performed to ensure safe environment.
[2017-01-30] MEDS: QUEtiapine 25 MG TABLET. PO SCH (19:31)
--- NOTE | 2017-01-30 20:07 | PDOC ---
Exam Note: Matteo Note: Please also refer to the separate dictated note~for this date of service dictated separately.~Patient seen individually. Discussed the patient with Nursing staff reviewed the chart.~Reviewed interim history and current functioning. Reviewed vital signs,~Labs/ Radiology~and current medications noted below. Continue current treatment with the changes noted in the dictated addendum note Assessment: Vital Signs: Vital Signs Date Time Temp Pulse Resp B/P (MAP) Pulse Ox O2 Delivery O2 Flow Rate FiO2 01/30/17 16:00 97.4 64 18 96/52 (67) 97 Room Air I&O Intake and Output 01/30/17 07:00 Intake Total 720 ml Balance 720 ml Intake Oral 720 ml # Voids 2 # Bowel Movements 1 Labs: Laboratory Tests Test 01/30/17 07:20 Prothrombin Time 18.5 SEC (9.4-11.4) H Prothrombin Time INR 1.8 (0.9-1.1) H Current Medications: Meds: Current Medications Acetaminophen (Tylenol) 650 mg PRN Q6HRS PRN PO PAIN / TEMP; Start 01/23/17 at 00:45; Status Cancel Multi-Ingredient Ointment (Analgesic [place]) 1 samantha PRN QID PRN TP MUSCLE PAIN; Start 01/23/17 at 00:45 Al Hydroxide/Mg Hydroxide (Mylanta Plus Xs) 15 ml PRN AFTMEALHC PRN PO DYSPEPSIA; Start 01/23/17 at 00:45 Magnesium Hydroxide (Milk Of Magnesia) 2,400 mg PRN QHS PRN PO CONSTIPATION; Start 01/23/17 at 00:45 Alprazolam (Xanax) 0.25 mg PRN Q6HRS PRN PO ANXIETY / AGITATION Last administered on 01/24/17 21:30; Start 01/23/17 at 01:00 Donepezil HCl (Aricept) 10 mg HS PO Last administered on 01/30/17 19:30; Start 01/23/17 at 21:00 Lorazepam (Ativan) 0.5 mg PRN Q6HRS PRN PO ANXIETY / AGITATION; Start at 01:00; Stop 01/25/17 at 19:34; Status DC Mirtazapine (Remeron) 7.5 mg HS PO Last administered on 01/30/17 19:30; Start 01/23/17 at 21:00 Quetiapine Fumarate (SEROquel) 12.5 mg HS PO Last administered on 01/30/17 19 :31; Start 01/23/17 at 21:00 Sertraline HCl (Zoloft) 50 mg DAILY PO Last administered on 01/28/17 08:47; Start 01/23/17 at 09:00; Stop 01/28/17 at 16:30; Status DC Acetaminophen (Tylenol) 1,000 mg PRN Q6HRS PRN PO PAIN / TEMP; Start 01/23/17 at 05:45 Acetaminophen (Tylenol) 650 mg PRN Q6HRS PRN PO PAIN / TEMP; Start 01/23/17 at 05:45 Amlodipine Besylate (Norvasc) 10 mg DAILY PO Last administered on 01/30/17 07 :53; Start 01/23/17 at 09:00 Aspirin (Aspirin Enteric Coated) 81 mg DAILY PO Last administered on 07:53; Start 01/23/17 at 09:00 Calcium/Vitamin D (Oscal D 500mg/ 200uts) 1 tab BIDWMEALS PO Last administered on 01/30/17 16:21; Start 01/23/17 at 08:00 Vitamin D (Vitamin D3) 1,000 unit DAILY PO Last administered on 01/30/17 07: 53; Start 01/23/17 at 09:00 Diclofenac Sodium (Voltaren) 1 samantha BID TP Last administered on 01/30/17 19:42 ; Start 01/23/17 at 09:00 Ferrous Sulfate (Feosol) 325 mg DAILY PO Last administered on 01/30/17 07:53 ; Start 01/23/17 at 09:00 Fluticasone Propionate (Flonase) 1 spray DAILY NS Last administered on 07:57; Start 01/23/17 at 09:00 Tramadol HCl (Ultram) 50 mg PRN Q6HRS PRN PO PAIN; Start 01/23/17 at 05:45 Warfarin Sodium (Coumadin) 2.5 mg DAILY16 PO Last administered on 01/30/17 16 :21; Start 01/23/17 at 16:00 Acyclovir (Zovirax) 400 mg BID PO Last administered on 01/30/17 19:29; Start 01/23/17 at 09:00 Cetirizine HCl (ZyrTEC) 10 mg DAILY PO Last administered on 01/30/17 07:53; Start 01/23/17 at 09:00 Warfarin Sodium (Coumadin) 1 mg DAILY16 PO Last administered on 01/30/17 16: 20; Start 01/23/17 at 16:00 Warfarin Sodium (Coumadin Per Physician) 1 each PRN DAILY PRN MC SEE COMMENTS; Start 01/23/17 at 08:00; Stop 01/26/17 at 19:20; Status DC Metronidazole (Flagyl) 500 mg BID76 PO Last administered on 01/23/17 18:40; Start 01/23/17 at 18:00; Stop 01/24/17 at 04:41; Status DC Prenat Multivit/ [place]/Iron/Folic Ac (Multivitamin ) 1 tab DAILY PO Last administered on 01/30/17 07:56; Start 01/24/17 at 09:00 Cyanocobalamin (Vitamin B-12) 1,000 mcg DAILY PO Last administered on 07:52; Start 01/24/17 at 09:00 Metronidazole (Flagyl) 500 mg BIDWMEALS PO Last administered on 01/28/17 16: 45; Start 01/24/17 at 08:00; Stop 01/29/17 at 07:59; Status DC Olanzapine (ZyPREXA ZYDIS) 1.25 mg PRN Q2HR PRN PO ANXIETY / AGITATION; Start 01/25/17 at 19:45 Warfarin Sodium (Coumadin Per Pharmacy) 1 each PRN DAILY PRN MC SEE COMMENTS Last administered on 01/30/17 13:59; Start 01/26/17 at 19:30 Sertraline HCl (Zoloft) 75 mg DAILY PO Last administered on 01/30/17 07:52; Start 01/29/17 at 09:00 Active Scripts Active Reported Alprazolam 0.25 Mg Tablet 0.25 Mg PO PRN Q6HRS PRN Warfarin Sodium 3 Mg Tablet 3.5 Mg PO HS Voltaren (Diclofenac Sodium) 100 Gm Gel..gram. 1 Samantha TP BID Acetaminophen 500 Mg Tablet 1,000 Mg PO PRN Q6HRS PRN Tramadol Hcl (Tramadol HCl) 50 Mg Tablet 50 Mg PO PRN Q6HRS PRN Zoloft (Sertraline Hcl) 50 Mg Tablet 50 Mg PO DAILY Seroquel (Quetiapine Fumarate) 25 Mg Tablet 12.5 Mg PO HS Oyster Shell 500 Mg + Vit D Tb (Calcium Carbonate/Vitamin D3) 1 Each Tablet 1 Tab PO BID Myrbetriq (Mirabegron) 25 Mg Tab.er.24h 25 Mg PO DAILY Mirtazapine 15 Mg Tablet 7.5 Mg PO HS Loratadine 10 Mg Tablet 10 Mg PO DAILY Fluticasone Propionate Nasal [place] (Fluticasone Propionate) 16 Gm [place].susp 1 [place] NS DAILY Ferrous Sulfate 325 Mg Tablet 325 Mg PO DAILY Vitamin D3 (Cholecalciferol (Vitamin D3)) 1,000 Unit Tablet 1,000 Unit PO DAILY Lorazepam 0.5 Mg Tablet 0.5 Mg PO PRN Q6HRS PRN Aspir-Low (Aspirin) 81 Mg Tablet.dr 81 Mg PO DAILY Aricept (Donepezil Hcl) 10 Mg Tablet 10 Mg PO HS Amlodipine Besylate 10 Mg Tablet 10 Mg PO DAILY Acyclovir 400 Mg Tablet 400 Mg PO BID Tylenol (Acetaminophen) 325 Mg Tablet 650 Mg PO PRN Q6HRS PRN I have reviewed the current psychotropics carefully including drug interactions. Risk benefit ratio favors no change other than as noted in my dictated progress note. 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
[2017-01-30] MEDS ORDERED: CYAN10005 PO (22:31)
[2017-01-30] MEDS ORDERED: MAG30ORA2 PO (22:34)
[2017-01-30] MEDS ORDERED: MAGN2400 PO (22:36)
[2017-01-30] MEDS ORDERED: METH29OI TP (22:42)
[2017-01-30] MEDS ORDERED: PREN1TAB80 PO (22:45)
[2017-01-31 05:45] VITALS: BP 139/75
[2017-01-31] MEDS ORDERED: OLAN5TAB9 PO (07:35)
[2017-01-31 08:03] VITALS: BP 139/75
[2017-01-31] MEDS: CYANOCOBALAMIN (VITAMIN B-12) 1,000 MCG TABLET. PO SCH (08:03)
[2017-01-31] MEDS: PRENATAL MULTIVITAMIN TABLET. PO SCH (08:03)
[2017-01-31] MEDS: amLODIPine BESYLATE 10 MG TABLET PO SCH (08:03)
[2017-01-31] MEDS: CALCIUM CARB/VIT D3 500/200 TABLET PO SCH (08:03)
[2017-01-31] MEDS: CETIRIZINE HCL 10 MG TABLET PO SCH (08:03)
[2017-01-31] MEDS: FERROUS SULFATE 325 MG TABLET. PO SCH (08:04)
[2017-01-31] MEDS: SERTRALINE 50 MG TABLET. PO SCH (08:04)
[2017-01-31] MEDS: ACYCLOVIR 200 MG CAPSULE PO SCH (08:04)
[2017-01-31] MEDS: CHOLECALCIFEROL (VITAMIN D3) 1,000 UNIT TABLET PO SCH (08:04)
[2017-01-31] MEDS: ASPIRIN ENTERIC COATED 81 MG TABLET.DR. PO SCH (08:04)
[2017-01-31] MEDS: MIRABEGRON 25 MG TAB.ER.24H PO SCH (08:05)
--- NOTE | 2017-01-31 08:40 | NUR ---
Behavior Intervention Response and Plan: BIRP Note: Behavior: Assumed Care of patient, patient located in Dining Room at shift change. Patient exhibited the following behavior Calm, Disorganized, Interactive. Brief assessment on rounds of vital signs, medication needs, lab studies, and pain. Treatment plan problems 1 & 2. Intervention: Patient assessed and the following interventions initiated safety checks 15 Minute Checks Cognitive Assessment , Head to toe Assessment , Medications. Response: After interactions and interventions patient responded in the following manner, Calm , Appropriate ,Compliant. Continue to assess behaviors and condition will continue to monitor throughout the shift as needed. Patient educated on ADL's, and hand hygiene. 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 Continue to assess patient for changes in above assessment. Monitor for medication needs, pain, and safety concerns. Hourly rounding performed to ensure safe environment.
--- NOTE | 2017-01-31 09:06 | NUR ---
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 Mame Hidalgo at facility w/in 7-10 days of dc Psychiatrist: at facility w/in 7-10 days of dc [facility] PCP: Dr. Yanira Apodaca [address] [place] [address], [place] [address] PHONE: [phone] FAX: [phone] Pt. has not been seen at this office since 03/29. If follow up is required, family to call and schedule appointment *Skilled orders provided. Previously had [facility].
[2017-01-31] MEDS: FLUTICASONE 50MCG/NASAL SPRAY 16GM BOTTLE. NS SCH (09:20)
[2017-01-31] MEDS: DICLOFENAC SODIUM 1% TOPICAL GEL 100GM TUBE. TP SCH (09:20)
--- NOTE | 2017-01-31 11:59 | NUR ---
Transition Record was faxed to follow-up provider with the following elements: Reason for admission, procedures, tests, principal diagnosis, pending studies, patient instructions, 02/09 contact information for unit, phone number to obtain pending test results, plan for follow-up care, physician follow-up, advanced directive information, and medication list with dose, duration and instructions. This information was included in the following documents: History and physical, lab results, study results, progress notes, social work planning form, DC instruction form, patient visit summary, and medication reconciliation form. Date & time record faxed: 0950 31 January 2017 Record faxed to: [facility] [phone] Record discussed with/ report given to: Called [phone] at 1050, 1130, and 1150. Message left on voicemail, then two messages with front end java developer.
--- NOTE | 2017-01-31 12:57 | PDOC ---
Exam Note: Matteo Note: Please also refer to the separate dictated note~for this date of service dictated separately.~Patient seen individually. Discussed the patient with Nursing staff reviewed the chart.~Reviewed interim history and current functioning. Reviewed vital signs,~Labs/ Radiology~and current medications noted below. Continue current treatment with the changes noted in the dictated addendum note Assessment: Vital Signs: Vital Signs Date Time Temp Pulse Resp B/P (MAP) Pulse Ox O2 Delivery O2 Flow Rate FiO2 01/31/17 08:03 57 139/75 01/31/17 05:45 97.3 18 96 01/30/17 16:00 Room Air I&O Intake and Output 01/31/17 07:00 Intake Total 960 ml Balance 960 ml Intake Oral 960 ml # Voids 2 # Bowel Movements 1 Current Medications: Meds: Current Medications Acetaminophen (Tylenol) 650 mg PRN Q6HRS PRN PO PAIN / TEMP; Start 01/23/17 at 00:45; Status Cancel Multi-Ingredient Ointment (Analgesic [place]) 1 samantha PRN QID PRN TP MUSCLE PAIN; Start 01/23/17 at 00:45; Stop 01/31/17 at 12:05; Status DC Al Hydroxide/Mg Hydroxide (Mylanta Plus Xs) 15 ml PRN AFTMEALHC PRN PO DYSPEPSIA; Start 01/23/17 at 00:45; Stop 01/31/17 at 12:05; Status DC Magnesium Hydroxide (Milk Of Magnesia) 2,400 mg PRN QHS PRN PO CONSTIPATION; Start 01/23/17 at 00:45; Stop 01/31/17 at 12:05; Status DC Alprazolam (Xanax) 0.25 mg PRN Q6HRS PRN PO ANXIETY / AGITATION Last administered on 01/24/17 21:30; Start 01/23/17 at 01:00; Stop 01/31/17 at 12 :05; Status DC Donepezil HCl (Aricept) 10 mg HS PO Last administered on 01/30/17t 19:30; Start 01/23/17 at 21:00; Stop 01/31/17 at 12:05; Status DC Lorazepam (Ativan) 0.5 mg PRN Q6HRS PRN PO ANXIETY / AGITATION; Start at 01:00; Stop 01/25/17 at 19:34; Status DC Mirtazapine (Remeron) 7.5 mg HS PO Last administered on 01/30/17 19:30; Start 01/23/17 at 21:00; Stop 01/31/17 at 12:05; Status DC Quetiapine Fumarate (SEROquel) 12.5 mg HS PO Last administered on 01/30/17 19 :31; Start 01/23/17 at 21:00; Stop 01/31/17 at 12:05; Status DC Sertraline HCl (Zoloft) 50 mg DAILY PO Last administered on 01/28/17 08:47; Start 01/23/17 at 09:00; Stop 01/28/17 at 16:30; Status DC Acetaminophen (Tylenol) 1,000 mg PRN Q6HRS PRN PO PAIN / TEMP; Start 01/23/17 at 05:45; Stop 01/31/17 at 12:05; Status DC Acetaminophen (Tylenol) 650 mg PRN Q6HRS PRN PO PAIN / TEMP; Start 01/23/17 at 05:45; Stop 01/31/17 at 12:05; Status DC Amlodipine Besylate (Norvasc) 10 mg DAILY PO Last administered on 01/31/17 08 :03; Start 01/23/17 at 09:00; Stop 01/31/17 at 12:05; Status DC Aspirin (Aspirin Enteric Coated) 81 mg DAILY PO Last administered on 08:04; Start 01/23/17 at 09:00; Stop 01/31/17 at 12:05; Status DC Calcium/Vitamin D (Oscal D 500mg/ 200uts) 1 tab BIDWMEALS PO Last administered on 01/31/17 08:03; Start 01/23/17 at 08:00; Stop 01/31/17 at 12:05; Status DC Vitamin D (Vitamin D3) 1,000 unit DAILY PO Last administered on 01/31/17 08: 04; Start 01/23/17 at 09:00; Stop 01/31/17 at 12:05; Status DC Diclofenac Sodium (Voltaren) 1 samantha BID TP Last administered on 01/31/17 09:20 ; Start 01/23/17 at 09:00; Stop 01/31/17 at 12:05; Status DC Ferrous Sulfate (Feosol) 325 mg DAILY PO Last administered on 01/31/17 08:04 ; Start 01/23/17 at 09:00; Stop 01/31/17 at 12:05; Status DC Fluticasone Propionate (Flonase) 1 spray DAILY NS Last administered on 09:20; Start 01/23/17 at 09:00; Stop 01/31/17 at 12:05; Status DC Tramadol HCl (Ultram) 50 mg PRN Q6HRS PRN PO PAIN; Start 01/23/17 at 05:45; Stop 01/31/17 at 12:05; Status DC Warfarin Sodium (Coumadin) 2.5 mg DAILY16 PO Last administered on 01/30/17 16 :21; Start 01/23/17 at 16:00; Stop 01/31/17 at 12:05; Status DC Acyclovir (Zovirax) 400 mg BID PO Last administered on 01/31/17 08:04; Start 01/23/17 at 09:00; Stop 01/31/17 at 12:05; Status DC Cetirizine HCl (ZyrTEC) 10 mg DAILY PO Last administered on 01/31/17 08:03; Start 01/23/17 at 09:00; Stop 01/31/17 at 12:05; Status DC Warfarin Sodium (Coumadin) 1 mg DAILY16 PO Last administered on 01/30/17 16: 20; Start 01/23/17 at 16:00; Stop 01/31/17 at 12:05; Status DC Warfarin Sodium (Coumadin Per Physician) 1 each PRN DAILY PRN MC SEE COMMENTS; Start 01/23/17 at 08:00; Stop 01/26/17 at 19:20; Status DC Metronidazole (Flagyl) 500 mg BID76 PO Last administered on 01/23/17 18:40; Start 01/23/17 at 18:00; Stop 01/24/17 at 04:41; Status DC Prenat Multivit/ [place]/Iron/Folic Ac (Multivitamin ) 1 tab DAILY PO Last administered on 01/31/17 08:03; Start 01/24/17 at 09:00; Stop 01/31/17 at 12:05; Status DC Cyanocobalamin (Vitamin B-12) 1,000 mcg DAILY PO Last administered on 08:03; Start 01/24/17 at 09:00; Stop 01/31/17 at 12:05; Status DC Metronidazole (Flagyl) 500 mg BIDWMEALS PO Last administered on 01/28/17 16: 45; Start 01/24/17 at 08:00; Stop 01/29/17 at 07:59; Status DC Olanzapine (ZyPREXA ZYDIS) 1.25 mg PRN Q2HR PRN PO ANXIETY / AGITATION; Start 01/25/17 at 19:45; Stop 01/31/17 at 12:05; Status DC Warfarin Sodium (Coumadin Per Pharmacy) 1 each PRN DAILY PRN MC SEE COMMENTS Last administered on 01/30/17 13:59; Start 01/26/17 at 19:30; Stop 01/31/17 at 12:05; Status DC Sertraline HCl (Zoloft) 75 mg DAILY PO Last administered on 01/31/17 08:04; Start 01/29/17 at 09:00; Stop 01/31/17 at 12:05; Status DC Active Scripts Active Reported Olanzapine 5 Mg Tablet 1.25 Mg PO PRN Q2HR PRN Formula ( Vit W-Ca,Fe,FA(<1 mg)) 1 Each Tablet 1 Each PO DAILY Analgesic [place] (Methyl Salicylate/Menthol) 28 Gm Oint...g. 1 Sam[place] TP PRN QID PRN Milk Of Magnesia (Magnesium Hydroxide) 2,400 Mg/10 Ml Oral.susp 2,400 Mg PO PRN HS constipation Mag-Al Plus Xs Suspension (Mag Hydrox/Al Hydrox/Simeth) 30 Ml Oral.susp 15 Ml PO PRN BFRMEALHC PRN Vitamin B-12 (Cyanocobalamin (Vitamin B-12)) 1,000 Mcg Tablet 1,000 Mcg PO DAILY Alprazolam 0.25 Mg Tablet 0.25 Mg PO PRN Q6HRS PRN Warfarin Sodium 3 Mg Tablet 3.5 Mg PO HS Voltaren (Diclofenac Sodium) 100 Gm Gel..gram. 1 Sam[place] TP BID Acetaminophen 500 Mg Tablet 1,000 Mg PO PRN Q6HRS PRN Tramadol Hcl (Tramadol HCl) 50 Mg Tablet 50 Mg PO PRN Q6HRS PRN Zoloft (Sertraline Hcl) 50 Mg Tablet 75 Mg PO DAILY Seroquel (Quetiapine Fumarate) 25 Mg Tablet 12.5 Mg PO HS Oyster Shell 500 Mg + Vit D Tb (Calcium Carbonate/Vitamin D3) 1 Each Tablet 1 Tab PO BID Myrbetriq (Mirabegron) 25 Mg Tab.er.24h 25 Mg PO DAILY Mirtazapine 15 Mg Tablet 7.5 Mg PO HS Loratadine 10 Mg Tablet 10 Mg PO DAILY Fluticasone Propionate Nasal [place] (Fluticasone Propionate) 16 Gm [place].susp 1 [place] NS DAILY Ferrous Sulfate 325 Mg Tablet 325 Mg PO DAILY Vitamin D3 (Cholecalciferol (Vitamin D3)) 1,000 Unit Tablet 1,000 Unit PO DAILY Aspir-Low (Aspirin) 81 Mg Tablet.dr 81 Mg PO DAILY Aricept (Donepezil Hcl) 10 Mg Tablet 10 Mg PO HS Amlodipine Besylate 10 Mg Tablet 10 Mg PO DAILY Acyclovir 400 Mg Tablet 400 Mg PO BID Tylenol (Acetaminophen) 325 Mg Tablet 650 Mg PO PRN Q6HRS PRN I have reviewed the current psychotropics carefully including drug interactions. Risk benefit ratio favors no change other than as noted in my dictated progress note. Diagnosis: Problems: (1) Impulse control disorder (2) Dementia, vascular, with depression (3) Dementia, vascular, with delusions (4) Dementia in Alzheimer's disease with delusions (5) Dementia in Alzheimer's disease with depression (6) Anxiety disorder HARRISON GRAHAM MD Jan 31, 2017 12:57
--- NOTE | 2017-02-01 00:54 | PN ---
DATE: 01/29/2017 This late entry 01/29/2017 covers elements not covered in my initial note 01/29/2017. I met with the patient evening of 01/29/2017. The patient remains confused, forgetful, somewhat depressed, but calm, cooperative, showing improvement. REVIEW OF SYSTEMS: Ambulation impaired with walker. No CV, , pulmonary, eye, ENT system symptoms on review. MENTAL STATUS EXAM: Oriented to herself and situation. Speech moderate latency, often responses monosyllabic. Abstraction fair, computation impaired, language function intact. Mood and affect remain somewhat withdrawn, less irritable. LABORATORY DATA: Reviewed. IMPRESSION: Major depressive disorder, rule out psychotic features; major neurocognitive disorder, Alzheimer, vascular with delusion, depression. Rest unchanged from initial note. PLAN: Continue psychotropics mentioned in my initial note. MAN Abdi GRAHAM MD DR: MARY/lawanda JOB#: [id number] / [id number]
--- NOTE | 2017-02-01 00:57 | PN ---
DATE: 01/30/2017 This is a late entry for 01/30/2017 and covers the elements not covered in my initial note of 01/30/2017. SUBJECTIVE: I met with the patient in the evening of 01/30/2017. Staffed a treatment team meeting with the entire team in the morning of 01/30/2017. Reviewed her history. She is alert and oriented to herself and situation. The day before she thought she was in [place]. REVIEW OF SYSTEMS: No CV, , pulmonary, eye, ENT system symptoms on review. Gait unsteady with walker. MENTAL STATUS EXAM: Oriented to herself. Insight, judgment, recent memory is impaired. Language function intact. Attention span short. Mood and affect showing some improvement. LABORATORY DATA: Reviewed. IMPRESSION: Major depressive disorder, rule out psychotic features; major neurocognitive disorder, Alzheimer, vascular with delusion, depression. Rest unchanged from initial note. PLAN: Continue psychotropics mentioned in my initial note. HARRISON GRAHAM MD DR: MARY/lawanda JOB#: [id number] / [id number]
--- NOTE | 2017-02-02 11:21 | DS ---
DATE OF DISCHARGE: 01/31/2017 DISCHARGE SUMMARY/PSYCHIATRIC PROGRESS NOTE This late entry 01/31/2017 covers elements not covered in my initial note of 01/31/2017. REASON FOR ADMISSION: Please refer to the admission history for details. Briefly, the patient is an 86-year-old female referred to us from [facility] by her primary care physician on account of worsening confusion, undressing, sexually inappropriate behaviors, and inserting foreign objects into her vagina ____ probable yeast infection. She was depressed, refusing medications with new onset incontinence. Behaviors were deemed dangerous, unmanageable at the facility, referred for inpatient psychiatric stabilization. SIGNIFICANT FINDINGS AND CLINICAL COURSE: Following admission, the patient was seen daily individually by myself, followed medically per Dr. Echols/Dr. Santo. The patient was quite confused, adjustments were made in her psychotropics and the confusion seemed to improve. She was much more cooperative, forgetful. Nevertheless, less delusional. No active suicidal or homicidal ideation. She seemed to stabilize on a combination of Aricept 10 mg at bedtime, Zyprexa p.r.n., Remeron 7.5 mg at bedtime, Seroquel 12.5 mg at bedtime, Zoloft 75 mg a day, Xanax p.r.n. CONDITION AT DISCHARGE: Improved prior to discharge. REVIEW OF SYSTEMS: Ambulation impaired, in wheelchair. No CV, , pulmonary, eye, ENT system symptoms on review. Reliability poor. MENTAL STATUS EXAM: Oriented to herself. Insight, judgment, recent and remote memory, attention, concentration, fund of knowledge poor, consistent with her diagnosis. FINAL DIAGNOSES: Major neurocognitive disorder, Alzheimer, vascular with depression, delusion, behavioral disturbance; anxiety disorder, unspecified; impulse control disorder, unspecified, rest unchanged from admission. DISCHARGE MEDICATIONS: Please refer to MRAD. DISCHARGE INSTRUCTIONS: Outpatient psychiatric and medical followup at the correction. Time for discharge day management greater than 30 minutes. MAN Abdi GRAHAM MD DR: MARY/lawanda JOB#: [id number] / [id number]
== END 2017-01-31 10:50 | disposition home or self-care (01) | DRG 885 ==
LOC: ER 20:09 → GEROPSY 01-23 00:13
PROVIDERS: ADMIT Psychiatry & Neurology Psychiatry; ATTEND Psychiatry & Neurology Psychiatry
DX: F32.3 Major depressive disorder, single episode, severe with psychotic features (principal); I48.91 Unspecified atrial fibrillation; R45.851 Suicidal ideations; D64.9 Anemia, unspecified; G30.9 Alzheimer's disease, unspecified; F01.51 Vascular dementia, unspecified severity, with behavioral disturbance; B37.3 Candidiasis of vulva and vagina; E53.8 Deficiency of other specified B group vitamins; E78.5 Hyperlipidemia, unspecified; F02.81 Dementia in other diseases classified elsewhere, unspecified severity, with behavioral disturbance; E61.1 Iron deficiency; F41.9 Anxiety disorder, unspecified; F63.9 Impulse disorder, unspecified; I10 Essential (primary) hypertension; I25.10 Atherosclerotic heart disease of native coronary artery without angina pectoris; M81.0 Age-related osteoporosis without current pathological fracture; Z79.899 Other long term (current) drug therapy; Z87.440 Personal history of urinary (tract) infections; Z91.81 History of falling
CPT/HCPCS: 36415; 70450; 80053; 80061; 80307; 81001; 82306; 82607; 83036; 83540; 83550; 83735; 84436; 84443; 84480; 84484; 85025; 85610; 86593; 93005; G0480; P9612; 97110; 97116; 97530; 97535; 99285-25; G0479